=== PATIENT | female | born 1980 | race Caucasian/White ===

== ENCOUNTER 2017-04-21 00:11 | Emergency (ER) | payer MEDICARE, MEDICAID ==
[2017-04-21] MEDS ORDERED: MORPHINE SULFATE 10 MG/ML INJ IV ONE (02:04)
[2017-04-21] MEDS ORDERED: ONDANSETRON HCL INJ/PF 4 MG/2 ML SDV IV ONE (02:04)
--- NOTE | 2017-04-21 02:05 | ER Document Report ---
ED GI/ - General Chief Complaint: Flank Pain Stated Complaint: FLANK PAIN Time Seen by Provider: 04/21/17 01:58 Notes: Patient is a 36-year-old female who comes by EMS for chief complaint of flank pain. Symptoms started about 3 days ago, started on the right side, now she feels it on both. She reports some nausea and chills but denies vomiting or fever. She reports dysuria. She denies hematuria. She reports history of many bladder infections but is unsure of history of kidney infection. She denies history of kidney stones. She has had a hysterectomy, appendectomy, cholecystectomy, and is on hydrocodone for avascular necrosis of the right hip. TRAVEL OUTSIDE OF THE [place] IN LAST 30 DAYS: No - Related Data Allergies/Adverse Reactions: meperidine [From Demerol] Allergy (Severe, Verified 04/21/17 02:40) Psychosis Latex, Natural Rubber Allergy (Intermediate, Verified 04/21/17 02:53) Hives tramadol [From Ultram] Allergy (Verified 04/21/17 02:40) Urinary retention Past Medical History - General Information source: Patient - Social History Smoking Status: Current Every Day Smoker Lives with: Family Family History: Reviewed & Not Pertinent Patient has suicidal ideation: No Patient has homicidal ideation: No Renal/ Medical History: Denies: Hx Peritoneal Dialysis Musculoskeltal Medical History: Reports Hx Musculoskeletal Deformity Past Surgical History: Reports: Hx Appendectomy, Hx Cholecystectomy, Hx Hysterectomy Review of Systems - Review of Systems Constitutional: No symptoms reported EENT: No symptoms reported Cardiovascular: No symptoms reported Respiratory: No symptoms reported Gastrointestinal: See HPI Genitourinary: See HPI Female Genitourinary: No symptoms reported Musculoskeletal: No symptoms reported Skin: No symptoms reported Hematologic/Lymphatic: No symptoms reported Neurological/Psychological: No symptoms reported Physical Exam - Vital signs Vitals: Temp Pulse Resp BP Pulse Ox 98.2 F 73 18 139/82 H 99 04/21/17 00:15 04/21/17 00:15 04/21/17 00:15 04/21/17 00:15 04/21/17 00:15 Interpretation: Normal - General General appearance: Alert - Patient alert, she appears mildly uncomfortable but does not appear to be in distress In distress: None - HEENT Head: Normocephalic, Atraumatic Eyes: Normal Pupils: PERRL - Respiratory Respiratory status: No respiratory distress Chest status: Nontender Breath sounds: Normal Chest palpation: Normal - Cardiovascular Rhythm: Regular Heart sounds: Normal auscultation Murmur: No - Abdominal Inspection: Normal Distension: No distension Bowel sounds: Normal Tenderness: Tender - Mild suprapubic tenderness, no guarding, no rigidity, otherwise unremarkable Organomegaly: No organomegaly - Back Back: Normal, Nontender. No: Tender, CVA tenderness - Extremities General upper extremity: Normal inspection, Nontender, Normal color, Normal ROM , Normal temperature General lower extremity: Normal inspection, Nontender, Normal color, Normal ROM , Normal temperature, Normal weight bearing. No: Chelita's sign - Neurological Neuro grossly intact: Yes Cognition: Normal Orientation: AAOx4 Mand[place] Coma Scale Eye Opening: Spontaneous [place]ub[place] Coma Scale Verbal: Oriented Nubia Coma Scale Motor: Obeys Commands Mandan Coma Scale Total: 15 Speech: Normal Motor strength normal: LUE, RUE, LLE, RLE Sensory: Normal - Psychological Associated symptoms: Normal affect, Normal mood - Skin Skin Temperature: Warm Skin Moisture: Dry Skin Color: Normal Course - Re-evaluation Re-evalutation: I do not appreciate overt tenderness at either CVA location. Nontender abdomen other than mild suprapubic tenderness. Patient initially complaining of pain but she does not appear to be in any distress. No complaints after medications. Generally well-appearing. Vital signs unremarkable. CBC, chemistry unremarkable. Urine has positive nitrites but is otherwise unremarkable. With patient's urinary complaints patient will be treated with Keflex, she states she gets yeast infections and will therefore be treated with Diflucan to take afterwards. Discussed recommendations, follow-up, return precautions. Patient states understanding and agreement. - Vital Signs Vital signs: Temp Pulse Resp BP Pulse Ox 97.8 F 76 12 117/87 H 96 04/21/17 04:49 04/21/17 04:49 04/21/17 04:49 04/21/17 04:49 04/21/17 04:49 - Laboratory Result Diagrams: 04/21/17 02:18 04/21/17 02:18 Laboratory results interpreted by me: 04/21/17 04/21/17 02:18 03:18 RDW 14.4 H Seg Neutrophils % 40.2 L Lymphocytes % 49.3 H Urine Blood SMALL H Urine Nitrite POSITIVE H Urine Urobilinogen 4.0 H Discharge - Discharge Clinical Impression: Dysuria, Flank pain Condition: Stable Disposition: HOME, SELF-CARE Additional Instructions: Workup and symptoms are consistent with a urinary tract infection. Take the Keflex as prescribed to completion, after completion take the Diflucan pill to treat yeast infection. Follow-up with primary care. Return to the emergency department for any concerning worsening symptoms including vomiting, fever, etc. Prescriptions: Cephalexin Monohydrate [Keflex 500 mg Capsule] 500 mg PO BID #10 capsule Fluconazole [Diflucan] 150 mg PO ONCE PRN #1 tablet PRN Reason: Referrals: YADIRA HE MD [Primary Care Provider] - Follow up as needed
[2017-04-21 02:33] LABS: ABSOLUTE BASOPHILS # (AUTO) 0.1 10^3/uL (0.0-0.2); ABSOLUTE EOSINOPHILS # (AUTO) 0.2 10^3/uL (0.0-0.6); ABSOLUTE LYMPHOCYTES (AUTO) 3.8 10^3/uL (0.5-4.7); ABSOLUTE MONOCYTES (AUTO) 0.5 10^3/uL (0.1-1.4); ABSOLUTE NEUT (AUTO) 3.1 10^3/uL (1.7-8.2); BASOPHILS % (AUTO) 1.4 % (0-2); EOSINOPHILS % (AUTO) 2.2 % (0-6); HEMATOCRIT 43.1 % (36.0-47.0); HEMOGLOBIN 14.7 g/dL (12.0-15.5); LYMPHOCYTES % (AUTO) 49.3 % (13-45); MEAN CORPUSCULAR HEMOGLOBIN 30.4 pg (27.0-33.4); MEAN CORPUSCULAR HGB CONC 34.2 g/dL (32.0-36.0); MEAN CORPUSCULAR VOLUME 89 fl (80-97); MONOCYTES % (AUTO) 6.9 % (3-13); RED BLOOD COUNT 4.86 10^6/uL (3.72-5.28); RED CELL DISTRIBUTION WIDTH 14.4 % (11.5-14.0); SEGMENTED NEUTROPHILS % (AUTO) 40.2 % (42-78); WHITE BLOOD COUNT 7.7 10^3/uL (4.0-10.5)
[2017-04-21 02:46] LABS: ALANINE AMINOTRANSFERASE 33 U/L (9-52); ALBUMIN 3.9 g/dL (3.5-5.0); ALKALINE PHOSPHATASE 114 U/L (38-126); ANION GAP 8 (5-19); ASPARTATE AMINO TRANSFERASE 21 U/L (14-36); BILIRUBIN,DIRECT 0.2 mg/dL (0.0-0.4); BILIRUBIN,TOTAL 0.5 mg/dL (0.2-1.3); BLOOD UREA NITROGEN 8 mg/dL (7-20); CALCIUM 9.6 mg/dL (8.4-10.2); CARBON DIOXIDE 28 mmol/L (22-30); CHLORIDE 104 mmol/L (98-107); CREATININE RESULT 0.95 mg/dL (0.52-1.25); GLUCOSE 95 mg/dL (75-110); POTASSIUM 4.3 mmol/L (3.6-5.0); SODIUM 140.3 mmol/L (137-145); TOTAL PROTEIN 6.7 g/dL (6.3-8.2)
[2017-04-21 03:39] LABS: APPEARANCE,URINE CLEAR; BILIRUBIN,URINE NEGATIVE (NEGATIVE); GLUCOSE, URINE NEGATIVE (NEGATIVE); KETONES,URINE NEGATIVE (NEGATIVE); LEUKOCYTE ESTERASE,URINE NEGATIVE (NEGATIVE); NITRITE,URINE POSITIVE (NEGATIVE); PROTEIN,URINE NEGATIVE (NEGATIVE); URINE SPECIFIC GRAVITY 1.005
[2017-04-21] MEDS ORDERED: CEPHALEXIN 500 MG CAPSULE PO ONE (04:05)
[2017-04-21 04:51] VITALS: BP 117/87
== END 2017-04-21 04:50 | disposition home or self-care (01) ==
LOC: ER 00:11
DX: R30.0 Dysuria (principal); R10.9 Unspecified abdominal pain; F17.200 Nicotine dependence, unspecified, uncomplicated; Z91.040 Latex allergy status; Z90.710 Acquired absence of both cervix and uterus; Z90.49 Acquired absence of other specified parts of digestive tract
CPT/HCPCS: 99284; 96374; 96375; 36415; 87086; 85025; 80053; 81001; A9270; J2270; J2405

== ENCOUNTER 2017-04-25 00:15 | Emergency (ER) | payer MEDICARE, MEDICAID ==
[2017-04-25] MEDS ORDERED: MORPHINE SULFATE 10 MG/ML INJ IV ONE ×2 (00:35→02:16)
--- NOTE | 2017-04-25 01:23 | ER Document Report ---
ED Fall - General Chief Complaint: Fall Injury Stated Complaint: FALL,HIP PAIN Time Seen by Provider: 04/25/17 00:21 Notes: Patient is a 36-year-old female that comes emergency department for chief complaint of pain to her right hip and right shoulder. She states that she tripped over her own pant leg and lost her balance and fell on the linoleum surface just prior to arrival. She denies head injury, neck pain, back pain. She is not on a blood thinner. She has a past medical history of avascular necrosis of the right hip, she states that she sees orthopedics in [place] and was told that after she drops below 250 pounds they will perform surgery. Other past medical history includes hysterectomy, cholecystectomy, appendectomy. She is on chronic pain management. TRAVEL OUTSIDE OF THE [place] IN LAST 30 DAYS: No - Related data Allergies/Adverse Reactions: meperidine [From Demerol] Allergy (Severe, Verified 04/21/17 02:40) Psychosis Latex, Natural Rubber Allergy (Intermediate, Verified 04/21/17 02:53) Hives tramadol [From Ultram] Allergy (Verified 04/21/17 02:40) Urinary retention Past Medical History - General Information source: Patient - Social History Smoking Status: Never Smoker Frequency of alcohol use: None Drug Abuse: None Lives with: Family Family History: Reviewed & Not Pertinent Renal/ Medical History: Denies: Hx Peritoneal Dialysis Musculoskeltal Medical History: Reports Hx Arthritis, Reports Hx Musculoskeletal Deformity Psychiatric Medical History: Reports: Hx Depression Past Surgical History: Reports: Hx Appendectomy, Hx Cholecystectomy, Hx Gynecologic Surgery - D&C, Hx Hysterectomy, Hx Tubal Ligation Review of Systems - Review of Systems Constitutional: No symptoms reported EENT: No symptoms reported Cardiovascular: No symptoms reported Respiratory: No symptoms reported Gastrointestinal: No symptoms reported Genitourinary: No symptoms reported Female Genitourinary: No symptoms reported Musculoskeletal: See HPI Skin: No symptoms reported Hematologic/Lymphatic: No symptoms reported Neurological/Psychological: No symptoms reported Physical Exam - Vital signs Interpretation: Normal - General General appearance: Appears well, Alert In distress: None - HEENT Head: Normocephalic, Atraumatic Eyes: Normal Conjunctiva: Normal Extraocular movements intact: Yes Eyelashes: Normal Pupils: PERRL Nasal: Normal Mouth/Lips: Normal Mucous membranes: Normal Pharynx: Normal Neck: Normal - Respiratory Respiratory status: No respiratory distress Chest status: Nontender Breath sounds: Normal. No: Decreased air movement, Wheezing Chest palpation: Normal - Cardiovascular Rhythm: Regular. No: Tachycardia Heart sounds: Normal auscultation, S1 appreciated, S2 appreciated Murmur: No - Abdominal Inspection: Normal Distension: No distension Bowel sounds: Normal Tenderness: Nontender. No: Tender, Guarding Organomegaly: No organomegaly - Back Back: Normal, Nontender - Extremities General upper extremity: Other - There is tenderness over the right proximal humerus and posterior shoulder generally. No bruising or swelling, normal range of motion of the shoulder, normal strength, normal distal neurovascular exam. General lower extremity: Other - Patient tender over right groin and right femur proximally, no bruising, swelling, or signs of trauma. Normal distal neurovascular exam. Difficulty lifting leg but patient reports this is chronic. - Neurological Neuro grossly intact: Yes Cognition: Normal Orientation: AAOx4 Nubia Coma Scale Eye Opening: Spontaneous Nubia Coma Scale Verbal: Oriented [place] Coma Scale Motor: Obeys Commands Nubia Coma Scale Total: 15 Speech: Normal Motor strength normal: LUE, RUE, LLE, RLE Sensory: Normal - Psychological Associated symptoms: Normal affect, Normal mood - Skin Skin Temperature: Warm Skin Moisture: Dry Skin Color: Normal Course - Re-evaluation Re-evalutation: Images show no fractures, show no acute abnormalities. Shows avascular necrosis of the hip which is known and chronic. Patient was given a report of this on request. Patient much more comfortable after medications in the department, she is on pain management at home. Discussed follow-up, patient states she only has 7 more pounds to lose before she qualifies for surgery. She seems to be motivated. Discussed return precautions in detail. Patient states understanding and agreement. - Diagnostic Test Radiology reviewed: Image reviewed, Reports reviewed Discharge - Discharge Clinical Impression: Right hip pain, Avascular necrosis of bone of right hip Fall Qualifiers: Encounter type: initial encounter Qualified Code(s): W19.XXXA - Unspecified fall, initial encounter Right shoulder pain Qualifiers: Chronicity: acute Qualified Code(s): M25.511 - Pain in right shoulder Condition: Stable Disposition: HOME, SELF-CARE Additional Instructions: No new findings are seen on your x-ray imaging or demonstrated on your exam. Follow-up with your orthopedic surgeon as planned for your hip. Return to emergency department for any concerning symptoms including swelling of the leg, numbness, severe pain, or any other concerning symptoms. Referrals: YADIRA HE MD [Primary Care Provider] - Follow up as needed
--- NOTE | 2017-04-25 02:14 | RADIOLOGY REPORT (SQ) ---
EXAM DESCRIPTION: HIP RIGHT AP/LATERAL COMPLETED DATE/TIME: 04/25/2017 1:32 am REASON FOR STUDY: fall, pain (hx avascular necrosis) COMPARISON: None. NUMBER OF VIEWS: Two views. TECHNIQUE: AP pelvis and additional frog-leg view of the right hip. LIMITATIONS: None. FINDINGS: MINERALIZATION: Normal. RIGHT HIP: Moderate sclerosis and mild deformity of the right femoral head and acetabulum with joint space narrowing, superior migration of the femoral head, moderate osteophytes, and small subchondral degenerative cysts consistent with clinical history of chronic avascular necrosis and secondary moder ate osteoarthritis. LEFT HIP: No fracture or dislocation. No worrisome bone lesions. PUBIS AND ISCHIUM: No fracture. PELVIS: No fracture. SACRUM: No fracture or dislocation. No worrisome bone lesions. LOWER LUMBAR SPINE: No fracture or dislocation. No worrisome bone lesions. No significant disc disea se. SOFT TISSUES: No findings. OTHER: Bilateral lower abdominal clips. IMPRESSION: No acute findings. Mild deformity and moderate osteoarthritis of the right hip consiste nt with history of chronic avascular necrosis. TECHNICAL DOCUMENTATION: JOB ID: [id number] [employer]- All Rights Reserved
--- NOTE | 2017-04-25 02:15 | RADIOLOGY REPORT (SQ) ---
EXAM DESCRIPTION: SHOULDER RIGHT 2 OR MORE VIEWS COMPLETED DATE/TIME: 04/25/2017 1:32 am REASON FOR STUDY: fall, pain COMPARISON: None. NUMBER OF VIEWS: Three views. TECHNIQUE: Internal rotation, external rotation, and Y view images acquired of the right shoulder. LIMITATIONS: None. FINDINGS: MINERALIZATION: Normal. BONES: No acute fracture or dislocation. No worrisome bone lesions. JOINTS: No dislocation. VISUALIZED LUNGS AND RIBS: No pneumothorax. No rib fracture. SOFT TISSUES: No radiopaque foreign body. OTHER: No other significant finding. IMPRESSION: NEGATIVE STUDY OF THE RIGHT SHOULDER. NO RADIOGRAPHIC EVIDENCE OF ACUTE INJURY. TECHNICAL DOCUMENTATION: JOB ID: [id number] [employer]- All Rights Reserved
== END 2017-04-25 03:32 | disposition home or self-care (01) ==
LOC: ER 00:15
DX: M25.551 Pain in right hip (principal); M87.9 Osteonecrosis, unspecified; M25.511 Pain in right shoulder; W19.XXXA Unspecified fall, initial encounter
CPT/HCPCS: 96376; 99283; 96374; 73502; 73030; J2270

== ENCOUNTER 2017-04-27 00:55 | Emergency (ER) | payer MEDICARE, MEDICAID ==
[2017-04-27] MEDS ORDERED: PROMETHAZINE HCL INJ 25 MG/1 ML VIAL IM ONE (01:51)
[2017-04-27] MEDS ORDERED: CLONIDINE 0.1 MG/24 HR PATCH.TDWK TD ONE (01:51)
--- NOTE | 2017-04-27 01:56 | ER Document Report ---
ED General - General Chief Complaint: Headache Stated Complaint: NAUSEA, VOMITING Time Seen by Provider: 04/27/17 01:44 Notes: The patient is a 36-year-old female, PMHx left hip AVN (scheduled for hip replacement at [facility] when she can lose 7 pounds), chronic left hip pain on pain management, presents with nausea, vomiting, diarrhea and feeling like she is withdrawing from her Wood[place]. Her last dose was 2 days ago and she has a pain management appointment this morning at a new pain management clinic. Patient also has a mild headache that feels similar to prior headaches. Patient denies abdominal pain, chest pain, shortness of breath, blurry vision, numbness, tingling, fevers, hematemesis or hematochezia. TRAVEL OUTSIDE OF THE [place] IN LAST 30 DAYS: No - Related Data Allergies/Adverse Reactions: meperidine [From Demerol] Allergy (Severe, Verified 04/27/17 01:09) Psychosis Latex, Natural Rubber Allergy (Intermediate, Verified 04/27/17 01:09) Hives tramadol [From Ultram] Allergy (Verified 04/27/17 01:09) Urinary retention Past Medical History - General Information source: Patient - Social History Smoking Status: Unknown if Ever Smoked Family History: Reviewed & Not Pertinent Patient has suicidal ideation: No Patient has homicidal ideation: No Renal/ Medical History: Denies: Hx Peritoneal Dialysis Musculoskeltal Medical History: Reports Hx Arthritis, Reports Hx Musculoskeletal Deformity Psychiatric Medical History: Reports: Hx Depression Past Surgical History: Reports: Hx Appendectomy, Hx Cholecystectomy, Hx Gynecologic Surgery - D&C, Hx Hysterectomy, Hx Tubal Ligation Review of Systems - Review of Systems Notes: REVIEW OF SYSTEMS: CONSTITUTIONAL: -fevers, -chills EENT: -eye pain, -difficulty swallowing, -nasal congestion CARDIOVASCULAR:-chest pain, -syncope. RESPIRATORY: -cough, -SOB GASTROINTESTINAL: -abdominal pain, +nausea, +vomiting, +diarrhea GENITOURINARY: -dysuria, -hematuria MUSCULOSKELETAL: +left hip pain, -back pain, -neck pain SKIN: -rash or skin lesions. HEMATOLOGIC: -easy bruising or bleeding. LYMPHATIC: -swollen, enlarged glands. NEUROLOGICAL: -altered mental status or loss of consciousness, -headache, - neurologic symptoms PSYCHIATRIC: -anxiety, -depression. ALL OTHER SYSTEMS REVIEWED AND NEGATIVE. Physical Exam - Vital signs Vitals: Temp Pulse Resp BP Pulse Ox 98.4 F 74 16 124/93 H 96 04/27/17 01:07 04/27/17 01:07 04/27/17 01:07 04/27/17 01:07 04/27/17 01:07 - Notes Notes: PHYSICAL EXAMINATION: GENERAL: Sleeping until I wake her and then she begins to hyperventilate. HEAD: Atraumatic, normocephalic. EYES: Pupils equal round and reactive to light, extraocular movements intact, sclera anicteric, conjunctiva are normal. ENT: nares patent, oropharynx clear without exudates. Moist mucous membranes. NECK: Normal range of motion, supple without lymphadenopathy LUNGS: Breath sounds clear to auscultation bilaterally and equal. No wheezes rales or rhonchi. HEART: Regular rate and rhythm without murmurs ABDOMEN: Soft, nontender, normoactive bowel sounds. No guarding, no rebound. No masses appreciated. EXTREMITIES: Normal range of motion, no pitting or edema. No cyanosis. NEUROLOGICAL: Cranial nerves grossly intact. Normal speech, normal gait. Normal sensory and motor exams. PSYCH: Normal mood, normal affect. SKIN: Warm, Dry, normal turgor, no rashes or lesions noted. Course - Re-evaluation Re-evalutation: Patient's abdomen is completely soft and nontender. With the nausea, vomiting, diarrhea and piloerection that started 48 hours after her last Woodridge dose, suspect opiate withdrawal causing her symptoms. Will provide her with clonidine , Zofran and Phenergan with follow-up at her pain management appointment today. - Vital Signs Vital signs: Temp Pulse Resp BP Pulse Ox 98.4 F 74 16 124/93 H 96 04/27/17 01:07 04/27/17 01:07 04/27/17 01:07 04/27/17 01:07 04/27/17 01:07 Discharge - Discharge Clinical Impression: Nausea vomiting and diarrhea, Opioid withdrawal Condition: Stable Disposition: HOME, SELF-CARE Additional Instructions: You must follow-up with your pain management doctor today as already scheduled. Prescriptions: Ondansetron [Zofran Odt 4 mg Tablet] 1 - 2 tab PO Q4H PRN #15 tab.rapdis PRN Reason: For Nausea/Vomiting
[2017-04-27 03:31] VITALS: BP 140/78
== END 2017-04-27 03:31 | disposition home or self-care (01) ==
LOC: ER 00:55
DX: R11.2 Nausea with vomiting, unspecified (principal); R19.7 Diarrhea, unspecified; F11.23 Opioid dependence with withdrawal; R51 Headache; M25.552 Pain in left hip; G89.29 Other chronic pain
CPT/HCPCS: 99283; 96372; J2550; J3490

== ENCOUNTER → 2017-05-05 | Outpatient (CLI) | payer MEDICARE, MEDICAID ==
--- NOTE | 2017-05-05 15:29 | RADIOLOGY REPORT (SQ) ---
EXAM DESCRIPTION: CHEST PA/LATERAL COMPLETED DATE/TIME: 05/05/2017 3:05 pm REASON FOR STUDY: PRE-OP COMPARISON: None. EXAM PARAMETERS: NUMBER OF VIEWS: two views TECHNIQUE: Digital Frontal and Lateral radiographic views of the chest acquired. RADIATION DOSE: NA LIMITATIONS: Obese patient FINDINGS: LUNGS AND PLEURA: No opacities, masses or pneumothorax. No pleural effusion. MEDIASTINUM AND HILAR STRUCTURES: No masses or contour abnormalities. HEART AND VASCULAR STRUCTURES: Mild cardiomegaly BONES: Osteopenic HARDWARE: Clips right upper quadrant post cholecystectomy OTHER: No other significant finding. IMPRESSION: Mild cardiomegaly TECHNICAL DOCUMENTATION: JOB ID: [id number] [employer]- All Rights Reserved
[2017-05-05 16:31] LABS: ABSOLUTE BASOPHILS # (AUTO) 0.1 10^3/uL (0.0-0.2); ABSOLUTE EOSINOPHILS # (AUTO) 0.2 10^3/uL (0.0-0.6); ABSOLUTE LYMPHOCYTES (AUTO) 3.4 10^3/uL (0.5-4.7); ABSOLUTE MONOCYTES (AUTO) 0.5 10^3/uL (0.1-1.4); ABSOLUTE NEUT (AUTO) 4.4 10^3/uL (1.7-8.2); BASOPHILS % (AUTO) 1.5 % (0-2); EOSINOPHILS % (AUTO) 2.7 % (0-6); HEMATOCRIT 42.2 % (36.0-47.0); HEMOGLOBIN 14.5 g/dL (12.0-15.5); HGB HCT DIFFERENCE 1.3; MEAN CORPUSCULAR HEMOGLOBIN 29.9 pg (27.0-33.4); MEAN CORPUSCULAR HGB CONC 34.2 g/dL (32.0-36.0); MEAN CORPUSCULAR VOLUME 87 fl (80-97); MONOCYTES % (AUTO) 6.2 % (3-13); RED BLOOD COUNT 4.83 10^6/uL (3.72-5.28); RED CELL DISTRIBUTION WIDTH 14.5 % (11.5-14.0); SEGMENTED NEUTROPHILS % (AUTO) 50.6 % (42-78); WHITE BLOOD COUNT 8.6 10^3/uL (4.0-10.5)
[2017-05-05 16:45] LABS: APPEARANCE,URINE CLEAR; BILIRUBIN,URINE NEGATIVE (NEGATIVE); GLUCOSE, URINE NEGATIVE (NEGATIVE); KETONES,URINE NEGATIVE (NEGATIVE); LEUKOCYTE ESTERASE,URINE NEGATIVE (NEGATIVE); NITRITE,URINE NEGATIVE (NEGATIVE); PROTEIN,URINE NEGATIVE (NEGATIVE); URINE SPECIFIC GRAVITY 1.003; UROBILINOGEN,URINE NEGATIVE mg/dL (<2.0)
[2017-05-05 16:56] LABS: ANION GAP 12 (5-19); BLOOD UREA NITROGEN 4 mg/dL (7-20); CALCIUM 9.4 mg/dL (8.4-10.2); CARBON DIOXIDE 23 mmol/L (22-30); CHLORIDE 105 mmol/L (98-107); CREATININE RESULT 0.81 mg/dL (0.52-1.25); GLUCOSE 85 mg/dL (75-110); POTASSIUM 3.8 mmol/L (3.6-5.0); SODIUM 140.3 mmol/L (137-145)
--- NOTE | 2017-05-05 18:18 | EKG REPORT ---
SEVERITY:- BORDERLINE ECG - SINUS RHYTHM CONSIDER RVH OR PMI W/ SEC REPOL ABNORMALITY BORDERLINE PROLONGED QT INTERVAL : Confirmed by: Ly Thornton MD 05-May-2017 18:17:57
== END ==
LOC: OD 14:16
PROVIDERS: ATTEND Orthopaedic Surgery
DX: Z01.810 Encounter for preprocedural cardiovascular examination (principal); Z01.812 Encounter for preprocedural laboratory examination; Z01.818 Encounter for other preprocedural examination
CPT/HCPCS: 36415; 71020; 80048; 81001; 85025; 93005; 93010

== ENCOUNTER 2017-10-13 12:57 | Emergency (ER) | payer MEDICARE, MEDICAID ==
[2017-10-13] MEDS ORDERED: PENICILLIN V POTASSIUM 500 MG TABLET PO ONE (13:17)
[2017-10-13] MEDS ORDERED: HYDROCODONE/ACETAMINOPHEN 5-325 MG TABLET PO ONE (13:17)
[2017-10-13] MEDS ORDERED: METOCLOPRAMIDE HCL 10 MG TABLET PO ONE (13:17)
--- NOTE | 2017-10-13 13:19 | ER Document Report ---
ED General - General Chief Complaint: Abdominal Pain Stated Complaint: VOMITING// ABDOMINAL PAIN Time Seen by Provider: 10/13/17 13:13 Mode of Arrival: Ambulatory Information source: Patient Notes: 37-year-old female presents with 2 separate complaints. Patient notes she is having left upper quadrant abdominal pain. Notes the pain has been ongoing now for a few days, patient notes the pain started after she was doing yard work and saw her PCP yesterday who believes it was a muscle strain, patient denies any fevers or chills admits to left-sided facial swelling as well started this morning. Patient notes she has a broken tooth TRAVEL OUTSIDE OF THE [place] IN LAST 30 DAYS: No - HPI Onset: Yesterday Onset/Duration: Persistent Quality of pain: Achy Severity: Mild Pain Level: 1 Associated symptoms: Nausea, Vomiting Exacerbated by: Food Relieved by: Denies Similar symptoms previously: Yes Recently seen / treated by doctor: Yes - Related Data Allergies/Adverse Reactions: meperidine [From Demerol] Allergy (Severe, Verified 10/13/17 13:03) Psychosis Latex, Natural Rubber Allergy (Intermediate, Verified 10/13/17 13:03) Hives melon Allergy (Verified 10/13/17 13:03) shellfish derived Allergy (Verified 10/13/17 13:03) strawberry Allergy (Verified 10/13/17 13:03) tramadol [From Ultram] Allergy (Verified 10/13/17 13:03) Urinary retention vinyl Allergy (Severe, Uncoded 05/18/17 15:11) Blisters Past Medical History - Social History Smoking Status: Never Smoker Cigarette use (# per day): No Chew tobacco use (# tins/day): No Smoking Education Provided: No Family History: Reviewed & Not Pertinent - Past Medical History Cardiac Medical History: Reports: Hx Hypertension Denies: Hx Atrial Fibrillation, Hx Congestive Heart Failure, Hx Coronary Artery Disease, Hx Heart Attack, Hx Hypercholesterolemia, Hx Peripheral Vascular Disease, Hx Pulmonary Embolism, Hx Heart Murmur Pulmonary Medical History: Reports: Hx Bronchitis Denies: Hx Asthma, Hx COPD, Hx Pneumonia, Hx Respiratory Failure, Hx Sleep Apnea, Hx Tuberculosis Renal/ Medical History: Denies: Hx End Stage Renal Disease, Hx Kidney Stones, Hx Peritoneal Dialysis Malignancy Medical History: Denies: Hx Leukemia, Hx Lung Cancer GI Medical History: Reports: Hx Gastroesophageal Reflux Disease. Denies: Hx Crohn's Disease, Hx Hiatal Hernia, Hx Irritable Bowel, Hx Liver Failure, Hx Pancreatitis, Hx Ulcer Musculoskeltal Medical History: Reports Hx Arthritis, Denies Hx Fibromyalgia, Denies Hx Muscular Dystrophy, Reports Hx Musculoskeletal Deformity Psychiatric Medical History: Reports: Hx Depression - anxiety Denies: Hx Bipolar Disorder, Hx Post Traumatic Stress Disorder, Hx Schizophrenia Traumatic Medical History: Denies: Hx Fractures Infectious Medical History: Denies: Hx HIV Past Surgical History: Reports: Hx Appendectomy, Hx Cholecystectomy, Hx Gynecologic Surgery - D&C, Hx Hysterectomy, Hx Tubal Ligation. Denies: Hx Bowel Surgery, Hx Section, Hx Colostomy, Hx Coronary Artery Bypass Graft, Hx Gastric Bypass Surgery, Hx Herniorrhaphy, Hx Mastectomy, Hx Pacemaker , Hx Tonsillectomy Review of Systems - Review of Systems Notes: REVIEW OF SYSTEMS: CONSTITUTIONAL : Denies fever, chills, or sweats. Denies recent illness. EENT: Admits facial swelling dental pain CARDIOVASCULAR: Denies chest pain. Denies palpitations or racing or irregular heart beat. Denies ankle edema. RESPIRATORY: Denies cough, cold, or chest congestion. Denies shortness of breath, difficulty breathing, or wheezing. GASTROINTESTINAL: Admits to left upper quadrant abdominal pain nausea vomiting GENITOURINARY: Denies difficulty urinating, painful urination, burning, frequency, blood in urine, or discharge. FEMALE GENITOURINARY: Denies vaginal bleeding, heavy or abnormal periods, irregular periods. Denies vaginal discharge or odor. MUSCULOSKELETAL: Denies back or neck pain or stiffness. Denies joint pain or swelling. SKIN: Denies rash, lesions or sores. HEMATOLOGIC : Denies easy bruising or bleeding. LYMPHATIC: Denies swollen, enlarged glands. NEUROLOGICAL: Denies confusion or altered mental status. Denies passing out or loss of consciousness. Denies dizziness or lightheadedness. Denies headache. Denies weakness or paralysis or loss of use of either side. Denies problems with gait or speech. Denies sensory loss, numbness, or tingling. Denies seizures. PSYCHIATRIC: Denies anxiety or stress. Denies depression, suicidal ideation, or homicidal ideation. ALL OTHER SYSTEMS REVIEWED AND NEGATIVE. PHYSICAL EXAMINATION: GENERAL: Well-appearing, well-nourished and in no acute distress. HEAD: Atraumatic, normocephalic. EYES: Pupils equal round and reactive to light, extraocular movements intact, conjunctiva are normal. ENT: Extremely poor dentition, tooth #20 is fractured there is facial edema noted of the left lower jaw with no abscess NECK: Normal range of motion, supple without lymphadenopathy LUNGS: Breath sounds clear to auscultation bilaterally and equal. No wheezes rales or rhonchi. HEART: Regular rate and rhythm without murmurs ABDOMEN: Soft, tender in the left upper quadrant Female : deferred Musculoskeletal: Normal range of motion, no pitting or edema. No cyanosis. NEUROLOGICAL: Cranial nerves grossly intact. Normal speech, normal gait. Normal sensory, motor exams PSYCH: Normal mood, normal affect. SKIN: Warm, Dry, normal turgor, no rashes or lesions noted. Dictation was performed using [employer] voice recognition software Physical Exam - Vital signs Vitals: Temp Pulse Resp BP Pulse Ox 97.9 F 70 22 H 179/100 H 100 10/13/17 13:03 10/13/17 13:03 10/13/17 13:03 10/13/17 13:03 10/13/17 13:03 Course - Re-evaluation Re-evalutation: 10/13/17 13:19 Patient has obvious dental infection, will be started on antibiotics, she nausea pain will be controlled, lab work is pending regarding her abdominal pain however I believe this may be more muscle strain as her PCP believes as well 10/13/17 14:44 Patient's lab work noted no significant abnormality, she otherwise looks well, she will be treated for a dental infection, be given pain control and otherwise is stable for discharge, patient will be given dentistry follow-up as well After performing a Medical Screening Examination, I estimate there is LOW risk for a DEEP SPACE INFECTION (e.g., KRIS'S ANGINA OR RETROPHARYNGEAL ABSCESS), MENINGITIS, INTRACRANIAL HEMORRHAGE, or AIRWAY COMPROMISE, thus I consider the discharge disposition reasonable. Also, there is no evidence or peritonitis, sepsis, or toxicity. I have reevaluated this patient multiple times and no significant life threatening changes are noted. The patient and I have discussed the diagnosis and risks, and we agree with discharging home with close follow-up with the understanding that symptoms and presentations can change. We also discussed returning to the Emergency Department immediately if new or worsening symptoms occur. We have discussed the symptoms which are most concerning (e.g., changing or worsening pain, trouble swallowing or breathing, neck stiffness or fever) that necessitate immediate return. - Vital Signs Vital signs: Temp Pulse Resp BP Pulse Ox 97.9 F 70 22 H 179/100 H 100 10/13/17 13:03 10/13/17 13:03 10/13/17 13:03 10/13/17 13:03 10/13/17 13:03 - Laboratory Result Diagrams: 10/13/17 13:26 10/13/17 13:26 Laboratory results interpreted by me: 10/13/17 10/13/17 13:26 13:26 RDW 14.5 H Chloride 108 H Discharge - Discharge Clinical Impression: Pain, dental, Facial swelling, Intermittent left upper quadrant abdominal pain Condition: Stable Disposition: HOME, SELF-CARE Instructions: Abdominal Pain ([facility]), Toothache ([facility]) Additional Instructions: Follow up with your physician tomorrow for further care or return to the ED IMMEDIATELY if symptoms worsen or new concerns occur. If you cannot afford to follow up with your primary care physician a list of low cost clinics have been provided at the end of your discharge papers as well. Prescriptions: Hydrocodone/Acetaminophen [[place] 5-325 mg Tablet] 1 tab PO Q6 #10 tablet Penicillin V Potassium [Penicillin Vk 500 mg Tablet] 500 mg PO Q6 #40 tablet
[2017-10-13 13:41] LABS: ABSOLUTE BASOPHILS # (AUTO) 0.1 10^3/uL (0.0-0.2); ABSOLUTE EOSINOPHILS # (AUTO) 0.2 10^3/uL (0.0-0.6); ABSOLUTE LYMPHOCYTES (AUTO) 2.4 10^3/uL (0.5-4.7); ABSOLUTE MONOCYTES (AUTO) 0.6 10^3/uL (0.1-1.4); ABSOLUTE NEUT (AUTO) 5.9 10^3/uL (1.7-8.2); BASOPHILS % (AUTO) 0.8 % (0-2); EOSINOPHILS % (AUTO) 1.9 % (0-6); HEMATOCRIT 44.5 % (36.0-47.0); HEMOGLOBIN 14.8 g/dL (12.0-15.5); LYMPHOCYTES % (AUTO) 25.9 % (13-45); MEAN CORPUSCULAR HEMOGLOBIN 29.3 pg (27.0-33.4); MEAN CORPUSCULAR HGB CONC 33.3 g/dL (32.0-36.0); MEAN CORPUSCULAR VOLUME 88 fl (80-97); MONOCYTES % (AUTO) 6.9 % (3-13); PLATELET COUNT 292 10^3/uL (150-450); RED BLOOD COUNT 5.07 10^6/uL (3.72-5.28); RED CELL DISTRIBUTION WIDTH 14.5 % (11.5-14.0); SEGMENTED NEUTROPHILS % (AUTO) 64.5 % (42-78); TOTAL CELLS COUNTED % (AUTO) 100 %; WHITE BLOOD COUNT 9.1 10^3/uL (4.0-10.5)
[2017-10-13 13:58] LABS: ALANINE AMINOTRANSFERASE 33 U/L (9-52); ALBUMIN 4.1 g/dL (3.5-5.0); ALKALINE PHOSPHATASE 119 U/L (38-126); ANION GAP 14 (5-19); ASPARTATE AMINO TRANSFERASE 19 U/L (14-36); BILIRUBIN,DIRECT 0.4 mg/dL (0.0-0.4); BILIRUBIN,TOTAL 0.4 mg/dL (0.2-1.3); BLOOD UREA NITROGEN 8 mg/dL (7-20); CALCIUM 9.8 mg/dL (8.4-10.2); CARBON DIOXIDE 22 mmol/L (22-30); CHLORIDE 108 mmol/L (98-107); GLUCOSE 100 mg/dL (75-110); LIPASE 83.8 U/L (23-300); POTASSIUM 4.2 mmol/L (3.6-5.0); SODIUM 143.7 mmol/L (137-145); TOTAL PROTEIN 6.5 g/dL (6.3-8.2)
[2017-10-13 14:51] VITALS: BP 128/95
== END 2017-10-13 14:50 | disposition home or self-care (01) ==
LOC: ER 12:57
DX: K04.7 Periapical abscess without sinus (principal); R10.12 Left upper quadrant pain; K08.89 Other specified disorders of teeth and supporting structures; R11.2 Nausea with vomiting, unspecified; I10 Essential (primary) hypertension; Z88.5 Allergy status to narcotic agent; Z91.040 Latex allergy status; Z91.018 Allergy to other foods; Z91.013 Allergy to seafood; Z91.048 Other nonmedicinal substance allergy status; Z90.49 Acquired absence of other specified parts of digestive tract
CPT/HCPCS: 99284; 36415; 83690; 85025; 80053; A9270 ×3

== ENCOUNTER → 2017-12-16 | Outpatient (CLI) | payer MEDICARE, MEDICAID ==
--- NOTE | 2017-12-16 18:56 | RADIOLOGY REPORT (SQ) ---
EXAM DESCRIPTION: CT RT LOWER EXTREMITY WITHOUT COMPLETED DATE/TIME: 12/16/2017 6:22 pm REASON FOR STUDY: UNILATERAL PRIMARY OSTEOARTHRITIS, RIGHT HIP M16.11 UNILATERAL PRIMARY OSTEOARTHR ITIS, RIGHT HIP M25.552 PAIN IN LEFT HIP COMPARISON: None. TECHNIQUE: CT scan of the right hip performed without intravenous or oral contrast. Images reviewed with soft tissue and bone windows. Reconstructed coronal and sagittal MPR images reviewed. All kylie ges stored on PACS. All CT scanners at this facility use dose modulation, iterative reconstruction, and/or weight based d osing when appropriate to reduce radiation dose to as low as reasonably achievable (ALARA). [facility]: Dose Right [facility]: CareDose [facility]: Dose Right [facility]: Teradose 4D [facility]: [employer] RADIATION DOSE: CT Rad equipment meets quality standard of care and radiation dose reduction techniq ues were employed. CTDIvol: 4.1 mGy. DLP: 147 mGy-cm. mGy. LIMITATIONS: None. FINDINGS: PELVIC BONES: No acute fracture. No worrisome bone lesions. VISUALIZED SPINE: Not included. SYMPTOMATIC HIP: Severe joint space narrowing with subchondral cysts in the acetabulum and femoral he ad. Marginal femoral osteophytes. OPPOSITE HIP: Not included. PELVIC SOFT TISSUES: No significant findings. EXTRAPELVIC SOFT TISSUES: No significant findings. OTHER: No other significant finding. IMPRESSION: Severe degenerative joint disease in the right hip. TECHNICAL DOCUMENTATION: JOB ID: [id number] Quality ID # [id number]: Final reports with documentation of one or more dose reduction techniques (e.g., Au tomated exposure control, adjustment of the mA and/or kV according to patient size, use of iterative reconstruction technique) 2010 [employer]- All Rights Reserved Reading location - IP/workstation name: [email or web address]
--- NOTE | 2017-12-17 08:53 | RADIOLOGY REPORT (SQ) ---
EXAM DESCRIPTION: MRI LT LOWER JOINT WITHOUT COMPLETED DATE/TIME: 12/16/2017 8:50 pm REASON FOR STUDY: PAIN IN LEFT HIP M16.11 UNILATERAL PRIMARY OSTEOARTHRITIS, RIGHT HIP M25.552 WICHO N IN LEFT HIP COMPARISON: Right hip plain films 04/25/2017, 05/19/2017 CT right hip 12/16/2017 TECHNIQUE: Lefth[employer] images acquired and stored on PACS. Multiplanar images to include fat sensitive s equences as T1, fluid sensitive sequences as T2/STIR and gradient echo sequences. Large FOV fat and f luid sensitive sequences include pelvis and opposite hip. LIMITATIONS: None. FINDINGS: BONE CORTEX AND MARROW: No findings worrisome for aggressive marrow replacement process or metastatic disease TARGETED LEFT HIP: FEMORAL HEAD: No occult fracture. No osteophytes or subchondral cysts. Normal sphericity of femoral h ead/neck junction. No acetabular dysplasia. No evidence femoroacetabular impingement. No significant effusion. No evidence of left femoral head avascular necrosis. ACETABULUM: Normal morphology. Mild chondromalacia. No subchondral cysts. LABRUM: Labrum is grossly normal size. Mild marrow edema at its attachment to the bony acetabulum on coronal series 9, images 13-16. No paralabral cyst. TROCHANTER: No trochanteric bursal effusion. No edema/fluid at the insertions of the gluteus medius and gluteus minimus. RIGHT HIP: Stage IV avascular necrosis right hip, with collapse of the articular surface right femora l head. Superimposed advanced osteoarthritis with a [id number]-xf-ccel appearance, subcortical cyst format ion in the right acetabulum, adjacent right acetabular and right femoral head and neck marrow edema. Diffusely abnormal calcified labrum. No right hip joint effusion. PELVIS, LOWER LUMBAR SPINE, SACROILIAC JOINTS: PELVIS : No insufficiency/stress fractures. No significant degenerative changes. Sacroiliac joints normal. L SPINE: No significant osteophytes or degenerative changes of the visualized lumbar spine. MUSCLES AND SOFT TISSUES: Adductors and piriformis normal. Abductors and greater trochanteric bursa n ormal without edema or fluid. Iliopsoas bursa without fluid. Hamstring attachments without edema or t ear. PELVIC SOFT TISSUES: Post hysterectomy. Sigmoid diverticuli without MR evidence of diverticulitis OTHER: No other significant finding. IMPRESSION: Stage IV avascular necrosis right hip No MR evidence of left hip avascular necrosis. TECHNICAL DOCUMENTATION: JOB ID: [id number] [employer]- All Rights Reserved Reading location - IP/workstation name: [email or web address]
== END ==
LOC: RAD 17:55
PROVIDERS: ATTEND Physician Assistant
DX: M16.11 Unilateral primary osteoarthritis, right hip (principal); M87.052 Idiopathic aseptic necrosis of left femur; M25.552 Pain in left hip

== ENCOUNTER → 2017-12-17 | Outpatient (CLI) | payer MEDICARE, MEDICAID ==
[2017-12-17 13:32] LABS: ABSOLUTE BASOPHILS # (AUTO) 0.1 10^3/uL (0.0-0.2); ABSOLUTE EOSINOPHILS # (AUTO) 0.2 10^3/uL (0.0-0.6); ABSOLUTE LYMPHOCYTES (AUTO) 2.6 10^3/uL (0.5-4.7); ABSOLUTE MONOCYTES (AUTO) 0.4 10^3/uL (0.1-1.4); ABSOLUTE NEUT (AUTO) 6.4 10^3/uL (1.7-8.2); BASOPHILS % (AUTO) 0.9 % (0-2); EOSINOPHILS % (AUTO) 2.4 % (0-6); HEMATOCRIT 40.5 % (36.0-47.0); HEMOGLOBIN 13.4 g/dL (12.0-15.5); LYMPHOCYTES % (AUTO) 26.9 % (13-45); MEAN CORPUSCULAR HEMOGLOBIN 29.6 pg (27.0-33.4); MEAN CORPUSCULAR HGB CONC 33.1 g/dL (32.0-36.0); MEAN CORPUSCULAR VOLUME 89 fl (80-97); MONOCYTES % (AUTO) 4.3 % (3-13); PLATELET COUNT 309 10^3/uL (150-450); RED BLOOD COUNT 4.53 10^6/uL (3.72-5.28); RED CELL DISTRIBUTION WIDTH 15.2 % (11.5-14.0); SEGMENTED NEUTROPHILS % (AUTO) 65.5 % (42-78); TOTAL CELLS COUNTED % (AUTO) 100 %; WHITE BLOOD COUNT 9.8 10^3/uL (4.0-10.5)
[2017-12-17 13:58] LABS: BACTERIA (WET MOUNT) 4+ BACTERIA SEEN; EPITHELIALS (WET MOUNT) 4+ EPITHELIALS SEEN; RBCS (WET MOUNT) RARE RBCS SEEN; T.VAGINALIS (WET MOUNT) NO TRICHOMONAS SEEN; WBCS (WET MOUNT) FEW WBCS SEEN; YEAST (WET MOUNT) NO YEAST SEEN
[2017-12-17 15:00] LABS: CHLAM PCR NOT DETECTED (NOT DETECT); GON PCR NOT DETECTED (NOT DETECT)
== END ==
LOC: LAB 13:14
PROVIDERS: ATTEND Nurse Practitioner Acute Care
DX: R10.84 Generalized abdominal pain (principal)
CPT/HCPCS: 36415; 85025; 87210; 87491; 87591

== ENCOUNTER 2018-01-20 04:03 | Emergency (ER) | payer MEDICARE, MEDICAID ==
[2018-01-20] MEDS ORDERED: CEFTRIAXONE 1 GM/D5W RTU 1 GM/50 ML RTUPB IV ONE (04:15)
[2018-01-20] MEDS ORDERED: ENOXAPARIN SODIUM INJ 120 MG/0.8 ML DISP.SYRIN SUBCUT SCH (04:15)
[2018-01-20] MEDS ORDERED: NORMAL SALINE 1000 ML 1,000 ML IV ONE (04:16)
--- NOTE | 2018-01-20 04:22 | ER Document Report ---
ED General - General TRAVEL OUTSIDE OF THE [place] IN LAST 30 DAYS: No <DESTINEE DC - Last Filed: 01/20/18 07:04> <LUDY JOHNSON - Last Filed: 01/20/18 09:52> - General Stated Complaint: PAIN AND SWELLING OF RIGHT LEG Time Seen by Provider: 01/20/18 04:06 - HPI Notes: Patient is a 37-year-old female with a history of avascular necrosis of the right hip with FLORY performed 6 days ago presents to the ED complaining of increased swelling to the right leg, increased warmth near the surgical site, and increased pain. Patient states that she is currently on Xarelto. Patient has been ambulatory with assistance from her walker since then. Patient states that she has a foot drop on the right side but developed right after the surgery which her surgeon is aware of per patient. Patient states that she otherwise feels well and has been eating and drinking without any difficulties. She is urinating normally and having normal bowel movements. Denies any headache, fever, URI, sore throat, chest pain, palpitations, syncope, cough, shortness of breath, wheeze, dyspnea, abdominal pain, nausea/vomiting/diarrhea, urinary retention, dysuria, hematuria, loss of control of bowel or bladder, saddle anesthesia, or rash. (DESTINEE DC) - Related Data Allergies/Adverse Reactions: meperidine [From Demerol] Allergy (Severe, Verified 10/13/17 13:03) Psychosis Latex, Natural Rubber Allergy (Intermediate, Verified 10/13/17 13:03) Hives melon Allergy (Verified 10/13/17 13:03) shellfish derived Allergy (Verified 10/13/17 13:03) strawberry Allergy (Verified 10/13/17 13:03) tramadol [From Ultram] Allergy (Verified 10/13/17 13:03) Urinary retention vinyl Allergy (Severe, Uncoded 05/18/17 15:11) Blisters Past Medical History - Social History Smoking Status: Never Smoker Family History: Reviewed & Not Pertinent - Past Medical History Cardiac Medical History: Reports: Hx Hypertension Denies: Hx Atrial Fibrillation, Hx Congestive Heart Failure, Hx Coronary Artery Disease, Hx Heart Attack, Hx Hypercholesterolemia, Hx Peripheral Vascular Disease, Hx Pulmonary Embolism, Hx Heart Murmur Pulmonary Medical History: Reports: Hx Bronchitis Denies: Hx Asthma, Hx COPD, Hx Pneumonia, Hx Respiratory Failure, Hx Sleep Apnea, Hx Tuberculosis Renal/ Medical History: Denies: Hx End Stage Renal Disease, Hx Kidney Stones, Hx Peritoneal Dialysis Malignancy Medical History: Denies: Hx Leukemia, Hx Lung Cancer GI Medical History: Reports: Hx Gastroesophageal Reflux Disease. Denies: Hx Crohn's Disease, Hx Hiatal Hernia, Hx Irritable Bowel, Hx Liver Failure, Hx Pancreatitis, Hx Ulcer Musculoskeltal Medical History: Reports Hx Arthritis, Denies Hx Fibromyalgia, Denies Hx Muscular Dystrophy, Reports Hx Musculoskeletal Deformity Psychiatric Medical History: Reports: Hx Depression - anxiety Denies: Hx Bipolar Disorder, Hx Post Traumatic Stress Disorder, Hx Schizophrenia Traumatic Medical History: Denies: Hx Fractures Infectious Medical History: Denies: Hx HIV Past Surgical History: Reports: Hx Appendectomy, Hx Cholecystectomy, Hx Gynecologic Surgery - D&C, Hx Hysterectomy, Hx Tubal Ligation. Denies: Hx Bowel Surgery, Hx Section, Hx Colostomy, Hx Coronary Artery Bypass Graft, Hx Gastric Bypass Surgery, Hx Herniorrhaphy, Hx Mastectomy, Hx Pacemaker , Hx Tonsillectomy <DESTINEE DC - Last Filed: 01/20/18 07:04> Review of Systems - Review of Systems -: Yes All other systems reviewed and negative <DESTINEE DC - Last Filed: 01/20/18 07:04> Physical Exam <DESTINEE DC - Last Filed: 01/20/18 07:04> <LUDY JOHNSON - Last Filed: 01/20/18 09:52> - Vital signs Vitals: Temp Pulse Resp BP Pulse Ox 99.4 F 84 16 143/93 H 97 01/20/18 04:11 01/20/18 04:11 01/20/18 04:11 01/20/18 04:11 01/20/18 04:11 - Notes Notes: PHYSICAL EXAMINATION: GENERAL: Well-appearing, well-nourished and in no acute distress. LUNGS: Breath sounds clear to auscultation bilaterally and equal. No wheezes rales or rhonchi. HEART: Regular rate and rhythm without murmurs, rubs, gallops. ABDOMEN: Soft, nontender, nondistended abdomen. No guarding, no rebound. No masses appreciated. Normal bowel sounds present. No CVA tenderness bilaterally. Musculoskeletal: Rt hip: LROM to passive/active. Strength 5+/5. + mild erythema and warmth. + mild tenderness. Rt leg: Compartments are soft. + foot drop. N/V intact distal. + pitting edema (approx 1-2+). Extremities: Peripheral pulses 2+. Capillary refill less than 3 seconds. NEUROLOGICAL: Normal speech. Normal sensory PSYCH: Normal mood, normal affect. SKIN: see above. Warm, Dry, normal turgor, no rashes or lesions noted. (DESTINEE DC) Course - Laboratory Result Diagrams: 01/20/18 04:32 01/20/18 04:32 <DESTINEE DC - Last Filed: 01/20/18 07:04> - Laboratory Result Diagrams: 01/20/18 04:32 01/20/18 04:32 <LUDY JOHNSON - Last Filed: 01/20/18 09:52> - Re-evaluation Re-evalutation: 01/20/18 04:[address] Haines. We will cover for infection and investigate further for possible DVT. Doppler cannot be performed until approx 0800. Lovenox ordered. Rocephin and fluids ordered along with labs. 01/20/18 07:05 Patient has no new concerns or complaints at this time. Transfer care to Delaney MOORE (DESTINEE DC) 01/20/18 09:31 I am concerned about infection when I walk into the room and see the redness, heat and an area of induration to the lateral right hip beneath the incision site, no drainage from the incision site according to BEN that was overnight who did remove dressing and take a look at the incision. Doppler ultrasound negative for any blood clot. Patient is afebrile with a normal white blood cell count. I did call and speak with the orthopedic doctor who performed patient surgery 6 days ago, [address] Delgado who recommends seeing her in the office this afternoon. However Dr. Delgado states that she thinks it is highly unlikely that there is an infection and she just saw her less than 12 hours ago. 01/20/18 09:51 Dr. Delgado just called back and states that she wants her to go directly there now, she has an opening this morning for her. (LUDY JOHNSON) - Vital Signs Vital signs: Temp Pulse Resp BP Pulse Ox 98.7 F 86 16 143/80 H 94 01/20/18 06:09 01/20/18 06:09 01/20/18 06:09 01/20/18 06:09 01/20/18 06:09 - Laboratory Laboratory results interpreted by me: 01/20/18 01/20/18 04:32 04:32 Hgb 11.8 L Hct 35.6 L RDW 14.5 H BUN 5 L AST 86 H ALT 124 H Alkaline Phosphatase 192 H Total Protein 5.7 L Albumin 3.0 L Discharge <DESTINEE DC - Last Filed: 01/20/18 07:04> <LUDY JOHNSON - Last Filed: 01/20/18 09:52> - Discharge Clinical Impression: Right leg pain Condition: Stable Disposition: HOME, SELF-CARE Additional Instructions: Rest, Ice, Compression, Elevation Use walker as directed Tylenol/ibuprofen as needed Light stretches daily Strength exercises as able Moist heat and massage may help F/u with your PCP in 3-5 days for a recheck Consider consult(s) with Orthopedics/physical therapy for ongoing/worsening symptoms Return to the ED with any worsening symptoms and/or development of fever, headache, chest pain, palpitations, syncope, shortness of breath, trouble breathing, abdominal pain, n/v/d, muscle weakness/paralysis, numbness/tingling, swelling, redness, or other worsening symptoms that are concerning to you. Referrals: RORY OLIVARES NP [Primary Care Provider] - Follow up as needed ORTHOPEDICS [Provider Group] - Follow up in 3-5 days
[2018-01-20] MEDS ORDERED: MORPHINE SULFATE 10 MG/ML INJ ONE (04:39)
[2018-01-20] MEDS ORDERED: MORPHINE SULFATE 10 MG/ML INJ IV ONE (04:58)
[2018-01-20 05:03] LABS: ABSOLUTE BASOPHILS # (AUTO) 0.1 10^3/uL (0.0-0.2); ABSOLUTE EOSINOPHILS # (AUTO) 0.3 10^3/uL (0.0-0.6); ABSOLUTE LYMPHOCYTES (AUTO) 2.2 10^3/uL (0.5-4.7); ABSOLUTE MONOCYTES (AUTO) 0.7 10^3/uL (0.1-1.4); ABSOLUTE NEUT (AUTO) 4.9 10^3/uL (1.7-8.2); EOSINOPHILS % (AUTO) 3.1 % (0-6); HEMATOCRIT 35.6 % (36.0-47.0); HEMOGLOBIN 11.8 g/dL (12.0-15.5); LYMPHOCYTES % (AUTO) 27.2 % (13-45); MEAN CORPUSCULAR HEMOGLOBIN 29.9 pg (27.0-33.4); MEAN CORPUSCULAR HGB CONC 33.2 g/dL (32.0-36.0); MEAN CORPUSCULAR VOLUME 90 fl (80-97); MONOCYTES % (AUTO) 8.4 % (3-13); PLATELET COUNT 432 10^3/uL (150-450); RED BLOOD COUNT 3.96 10^6/uL (3.72-5.28); RED CELL DISTRIBUTION WIDTH 14.5 % (11.5-14.0); SEGMENTED NEUTROPHILS % (AUTO) 60.3 % (42-78); TOTAL CELLS COUNTED % (AUTO) 100 %; WHITE BLOOD COUNT 8.1 10^3/uL (4.0-10.5)
[2018-01-20] MEDS ORDERED: HYDROMORPHONE HCL INJ/PF 2 MG/ML AMPULE IV ONE ×2 (05:22→07:24)
[2018-01-20 05:27] LABS: INTERNATIONAL RATION (INR) 0.96; PROTHROMBIN TIME 13.2 SEC (11.4-15.4)
[2018-01-20 05:28] LABS: PARTIAL THROMBOPLASTIN TIME 34.9 SEC (23.5-35.8)
[2018-01-20 05:40] LABS: ALANINE AMINOTRANSFERASE 124 U/L (9-52); ALKALINE PHOSPHATASE 192 U/L (38-126); ANION GAP 9 (5-19); ASPARTATE AMINO TRANSFERASE 86 U/L (14-36); BILIRUBIN,DIRECT 0.4 mg/dL (0.0-0.4); BILIRUBIN,TOTAL 0.5 mg/dL (0.2-1.3); BLOOD UREA NITROGEN 5 mg/dL (7-20); CALCIUM 9.1 mg/dL (8.4-10.2); CARBON DIOXIDE 30 mmol/L (22-30); CHLORIDE 105 mmol/L (98-107); GLUCOSE 98 mg/dL (75-110); POTASSIUM 4.2 mmol/L (3.6-5.0); SODIUM 143.6 mmol/L (137-145); TOTAL PROTEIN 5.7 g/dL (6.3-8.2)
[2018-01-20] MEDS ORDERED: ONDANSETRON HCL INJ/PF 4 MG/2 ML SDV IV ONE (06:57)
[2018-01-20] MEDS ORDERED: ONDANSETRON HCL 8 MG TABLET PO ONE (07:00)
[2018-01-20] MEDS ORDERED: ONDANSETRON 4 MG TAB.RAPDIS PO ONE (07:03)
[2018-01-20 08:25] LABS: APPEARANCE,URINE CLEAR; BILIRUBIN,URINE NEGATIVE (NEGATIVE); COLOR,URINE YELLOW; GLUCOSE, URINE NEGATIVE (NEGATIVE); KETONES,URINE NEGATIVE (NEGATIVE); LEUKOCYTE ESTERASE,URINE NEGATIVE (NEGATIVE); NITRITE,URINE NEGATIVE (NEGATIVE); PROTEIN,URINE NEGATIVE (NEGATIVE); URINE SPECIFIC GRAVITY 1.005; UROBILINOGEN,URINE NEGATIVE mg/dL (<2.0)
--- NOTE | 2018-01-20 08:28 | RADIOLOGY REPORT (SQ) ---
EXAM DESCRIPTION: VENOUS UNILATERAL LOWER COMPLETED DATE/TIME: 01/20/2018 8:13 am REASON FOR STUDY: recent surgery, + leg swelling COMPARISON: None. TECHNIQUE: Dynamic and static eisenberg scale and color images acquired of the right leg venous system. S elected spectral images acquired with additional compression and augmentation maneuvers. The contrala teral common femoral vein and saphenofemoral junction were also imaged. Images stored on PACS. LIMITATIONS: None. FINDINGS: RIGHT COMMON FEMORAL: Normal phasicity, compression and augmentation. No visualized echogenic material on g ray scale. No defects on color images. FEMORAL: Normal compression and augmentation. No visualized echogenic material on eisenberg scale. No defe cts on color images. POPLITEAL: Normal compression, augmentation. No visualized echogenic material on eisenberg scale. No defec ts on color images. CALF VESSELS: Normal compression, augmentation. No visualized echogenic material on eisenberg scale. No de fects on color images. GSV and SSV: Normal compression, augmentation. No visualized echogenic material on eisenberg scale. No def ects on color images. ANY DEEP VENOUS INSUFFICIENCY: Not evaluated. ANY EVIDENCE OF POPLITEAL CYST: No. OTHER: No other significant finding. LEFT COMMON FEMORAL VEIN AND SAPHENOFEMORAL JUNCTION: Normal phasicity, compression and augmentation. No visualized echogenic material on eisenberg scale. No de fects on color images. IMPRESSION: NO EVIDENCE OF DVT OR SVT IN THE RIGHT LEG. TECHNICAL DOCUMENTATION: JOB ID: [id number] [employer]- All Rights Reserved Reading location - IP/workstation name: [email or web address]
[2018-01-20] MEDS ORDERED: FENTANYL CITRATE INJ/PF 100 MCG/2 ML AMPUL IV ONE (09:09)
[2018-01-20 10:39] VITALS: BP 144/85
== END 2018-01-20 10:40 | disposition home or self-care (01) ==
LOC: ER 04:03
DX: M79.604 Pain in right leg (principal); M21.371 Foot drop, right foot; R60.0 Localized edema; I10 Essential (primary) hypertension; Z96.641 Presence of right artificial hip joint; Z87.39 Personal history of other diseases of the musculoskeletal system and connective tissue; Z79.01 Long term (current) use of anticoagulants; Z88.5 Allergy status to narcotic agent; Z91.040 Latex allergy status; Z91.018 Allergy to other foods; Z91.013 Allergy to seafood; Z91.048 Other nonmedicinal substance allergy status
CPT/HCPCS: 96376; 99284; 96372; 96361; 96375; 96365; 36415; 87040; 85025; 85610; 85730; 80053; 81001; 93971; A9270; J3010; J1650; J2270; J1170; J7030; J0696; S0119

== ENCOUNTER 2018-01-22 12:27 | Emergency (ER) | payer MEDICARE, MEDICAID ==
[2018-01-22 12:33] VITALS: BP 125/67
--- NOTE | 2018-01-22 13:07 | RADIOLOGY REPORT (SQ) ---
EXAM DESCRIPTION: HIP RIGHT AP/LATERAL COMPLETED DATE/TIME: 01/22/2018 12:59 pm REASON FOR STUDY: right hip pain post replacement COMPARISON: None. NUMBER OF VIEWS: Two views. TECHNIQUE: AP pelvis and additional frog-leg view of the right hip. LIMITATIONS: None. FINDINGS: 2 AP views of the right hip show a right hip arthroplasty in good position. IMPRESSION: Right hip arthroplasty. TECHNICAL DOCUMENTATION: JOB ID: [id number] [employer]- All Rights Reserved Reading location - IP/workstation name: [email or web address]
[2018-01-22] MEDS ORDERED: HYDROMORPHONE HCL 2 MG TABLET PO ONE (13:24)
[2018-01-22] MEDS ORDERED: PROMETHAZINE HCL 25 MG TABLET PO ONE (13:25)
--- NOTE | 2018-01-22 14:11 | ER Document Report ---
ED Hip Pain/Injury - General Chief Complaint: Hip Pain Stated Complaint: HIP PAIN Time Seen by Provider: 01/22/18 13:24 Notes: Patient had a right total hip replacement 8 days ago. She has been recovering at local rehab facility and has been walking with the assistance of a walker. Has been recovering without major problems until she was scooting in bed this morning and heard a very loud pop from the right hip region associated with severe pain. Unable to have the right leg moved actively or passively. Still painful at this time. Patient had a hip replacement for avascular necrosis. Surgeon is Dr. Delgado in [place]. TRAVEL OUTSIDE OF THE [place] IN LAST 30 DAYS: No - Related Data Allergies/Adverse Reactions: meperidine [From Demerol] Allergy (Severe, Verified 01/22/18 12:33) Psychosis Latex, Natural Rubber Allergy (Intermediate, Verified 01/22/18 12:33) Hives melon Allergy (Verified 01/22/18 12:33) shellfish derived Allergy (Verified 01/22/18 12:33) strawberry Allergy (Verified 01/22/18 12:33) tramadol [From Ultram] Allergy (Verified 01/22/18 12:33) Urinary retention vinyl Allergy (Severe, Uncoded 01/22/18 12:33) Blisters Past Medical History - Social History Smoking Status: Current Every Day Smoker Frequency of alcohol use: None Drug Abuse: Marijuana Family History: Reviewed & Not Pertinent Patient has suicidal ideation: No Patient has homicidal ideation: No - Past Medical History Cardiac Medical History: Reports: Hx Hypertension Pulmonary Medical History: Reports: Hx Bronchitis GI Medical History: Reports: Hx Gastroesophageal Reflux Disease Musculoskeltal Medical History: Reports Hx Arthritis, Reports Hx Musculoskeletal Deformity Psychiatric Medical History: Reports: Hx Depression - anxiety Past Surgical History: Reports: Hx Appendectomy, Hx Cholecystectomy, Hx Gynecologic Surgery - D&C, Hx Hysterectomy, Hx Tubal Ligation Review of Systems - Review of Systems Notes: REVIEW OF SYSTEMS: CONSTITUTIONAL : Denies fever. EENT: Denies eye, ear, nose or mouth or throat pain or other symptoms. CARDIOVASCULAR: Denies chest pain. RESPIRATORY: Denies cough, chest congestion, or shortness of breath. GASTROINTESTINAL: Denies abdominal pain or nausea, vomiting, or diarrhea. GENITOURINARY: Denies difficulty or painful urinating, urinary frequency, blood in urine. MUSCULOSKELETAL: Denies back or neck pain. See HPI. Patient is concerned about swelling in her right lower leg and foot. SKIN: Denies rash or skin lesions. NEUROLOGICAL: Denies LOC or altered mental status. Denies headache. Denies sensory loss or motor deficits. ALL OTHER SYSTEMS REVIEWED AND NEGATIVE. Physical Exam - Vital signs Vitals: Temp Pulse Resp BP Pulse Ox 98.3 F 90 18 125/67 97 01/22/18 12:32 01/22/18 12:32 01/22/18 12:32 01/22/18 12:32 01/22/18 12:32 Interpretation: Normal - Notes Notes: PHYSICAL EXAMINATION: GENERAL: Well-appearing, in no acute distress. Anxious, appears uncomfortable. Vital signs are all normal. HEAD: Atraumatic, normocephalic. EYES: Pupils equal round and reactive to light, extraocular movements intact. ENT: oropharynx clear without exudates. Moist mucous membranes. NECK: Normal range of motion, supple. LUNGS: Breath sounds clear and equal bilaterally. HEART: Regular rate and rhythm without murmurs. ABDOMEN: Soft, nontender. No guarding or rebound. No masses. BACK: No tenderness throughout entire back. EXTREMITIES: Right hip appears to be in normal alignment clinically. Slight movement is not especially painful, but the patient does indicate pain with any significant movement of the right hip joint. Patient has some mild diffuse swelling from the right lower leg down to the feet. Negative Homans bilaterally. Nothing to suggest DVT. Just looks like dependent edema. Recommended the patient elevate the right lower leg with the foot and ankle above the knee, etc. Normal range of motion without pain. Excellent dorsalis pedis pulse palpated. NEUROLOGICAL: Normal speech, normal gait. Normal sensory, motor, and reflex exams. Awake, alert, and oriented x3. Cranial nerves normal. PSYCH: Normal mood, normal affect. SKIN: Warm, dry, no rashes. Course - Re-evaluation Re-evalutation: 01/22/18 14:[address] Delgado and she advised that the patient continue with her rehab as before without any change in limitations. Dr. Delgado indicates that this patient has had several problems since her surgery, one requiring her to be seen by Dr. Delgado in the emergency department. She was reassured learning that the x-ray shows the hip to be in proper location. - Vital Signs Vital signs: Temp Pulse Resp BP Pulse Ox 98.3 F 90 18 125/67 97 01/22/18 12:32 01/22/18 12:32 01/22/18 12:32 01/22/18 12:32 01/22/18 12:32 - Diagnostic Test Radiology results interpreted by me: 01/22/18 14:11 X-ray reveals the prosthetic hip to be in proper location. Discharge - Discharge Clinical Impression: Right hip pain, History of total right hip replacement Condition: Stable Disposition: HOME, SELF-CARE Additional Instructions: Right hip pain Your right hip pain may have been due to some slippage of your surgical hip, but at this time, it appears that the hip is in perfect alignment and you can be discharged back to the rehab facility. I spoke with Dr. Delgado and she recommended that she resume your rehab activities and schedule just as you have been doing. FOLLOW-UP CARE: If you have been referred to a physician for follow-up care, call the physician s office for an appointment as you were instructed or within the next two days. If you experience worsening or a significant change in your symptoms, notify the physician immediately or return to the Emergency Department at any time for re-evaluation. Referrals: ELSA GONZALEZ PA [Primary Care Provider] - Follow up as needed
== END 2018-01-22 14:33 | disposition home or self-care (01) ==
LOC: ER 12:27
DX: M25.551 Pain in right hip (principal); Z96.641 Presence of right artificial hip joint; F17.200 Nicotine dependence, unspecified, uncomplicated; F12.10 Cannabis abuse, uncomplicated; I10 Essential (primary) hypertension; Z88.5 Allergy status to narcotic agent; Z91.040 Latex allergy status; Z91.018 Allergy to other foods; Z91.013 Allergy to seafood; Z91.048 Other nonmedicinal substance allergy status
CPT/HCPCS: 99284; 73502; A9270 ×2

== ENCOUNTER 2018-02-13 20:43 | Emergency (ER) | payer MEDICARE, MEDICAID ==
[2018-02-13 21:03] VITALS: BP 158/92
[2018-02-13] MEDS ORDERED: MORPHINE SULFATE 10 MG/ML INJ IM ONE (21:31)
--- NOTE | 2018-02-13 21:31 | ER Document Report ---
ED General - General Chief Complaint: Hip Pain Stated Complaint: KNEE PAIN Time Seen by Provider: 02/13/18 21:23 Mode of Arrival: Medic Information source: Patient Notes: 37-year-old female brought to the emergency department by EMS status post fall. Patient states that she had surgery on her hip one month ago by Dr. Delgado in [facility]. Patient states that since then she has had a right foot drop. Patient states that tonight she tripped over her right foot and fell onto both of her knees. Patient denies any head injury or loss of consciousness. Patient states that she is having pain to her bilateral knees, her right hip, right femur. Patient states that she is on narcotic pain medication for her hip. TRAVEL OUTSIDE OF THE [place] IN LAST 30 DAYS: No - HPI Onset: Just prior to arrival Onset/Duration: Sudden Quality of pain: Sharp, Stabbing, Throbbing Severity: Moderate Associated symptoms: None Exacerbated by: Movement Relieved by: Denies Similar symptoms previously: No Recently seen / treated by doctor: No - Related Data Allergies/Adverse Reactions: meperidine [From Demerol] Allergy (Severe, Verified 01/22/18 12:33) Psychosis Latex, Natural Rubber Allergy (Intermediate, Verified 01/22/18 12:33) Hives melon Allergy (Verified 01/22/18 12:33) shellfish derived Allergy (Verified 01/22/18 12:33) strawberry Allergy (Verified 01/22/18 12:33) tramadol [From Ultram] Allergy (Verified 01/22/18 12:33) Urinary retention vinyl Allergy (Severe, Uncoded 01/22/18 12:33) Blisters Past Medical History - General Information source: Patient - Social History Smoking Status: Current Every Day Smoker Family History: Reviewed & Not Pertinent - Past Medical History Cardiac Medical History: Reports: Hx Hypertension Pulmonary Medical History: Reports: Hx Bronchitis Renal/ Medical History: Denies: Hx Peritoneal Dialysis GI Medical History: Reports: Hx Gastroesophageal Reflux Disease Musculoskeletal Medical History: Reports Hx Arthritis, Reports Hx Musculoskeletal Deformity Psychiatric Medical History: Reports: Hx Depression - anxiety Past Surgical History: Reports: Hx Appendectomy, Hx Cholecystectomy, Hx Gynecologic Surgery - D&C, Hx Hysterectomy, Hx Tubal Ligation Review of Systems - Review of Systems Constitutional: No symptoms reported EENT: No symptoms reported Cardiovascular: No symptoms reported Respiratory: No symptoms reported Gastrointestinal: No symptoms reported Genitourinary: No symptoms reported Female Genitourinary: No symptoms reported Musculoskeletal: Joint pain Skin: No symptoms reported Hematologic/Lymphatic: No symptoms reported Neurological/Psychological: No symptoms reported -: Yes All other systems reviewed and negative Physical Exam - Vital signs Vitals: Temp Pulse Resp BP Pulse Ox 98.5 F 87 24 H 158/92 H 97 02/13/18 21:01 02/13/18 21:01 02/13/18 21:01 02/13/18 21:01 02/13/18 21:01 Interpretation: Normal - Notes Notes: PHYSICAL EXAMINATION: GENERAL: Well-appearing, well-nourished and in no acute distress. HEAD: Atraumatic, normocephalic. EYES: Pupils equal round and reactive to light, extraocular movements intact, conjunctiva are normal. ENT: Nares patent, oropharynx clear without exudates. Moist mucous membranes. NECK: Normal range of motion, supple without lymphadenopathy LUNGS: Breath sounds clear to auscultation bilaterally and equal. No wheezes rales or rhonchi. HEART: Regular rate and rhythm without murmurs ABDOMEN: Soft, nontender, nondistended abdomen. No guarding, no rebound. No masses appreciated. Female : deferred Musculoskeletal: Tenderness to palpation of the R hip, R knee, L knee. Patient is able to flex/extend at hip and knees despite pain. 2+ DP/PT pulses. NEUROLOGICAL: Cranial nerves grossly intact. Normal speech, normal gait. Normal sensory, motor exams PSYCH: Normal mood, normal affect. SKIN: Warm, Dry, normal turgor, Abrasion to the L knee. Course - Re-evaluation Re-evalutation: 02/13/18 23:11 XR of the hip/pelvis, knees obtained. No acute process identified. Patient instructed to follow up with her orthopedic surgeon this week as scheduled, to take her medication as directed, and to return for worsening symptoms. - Vital Signs Vital signs: Temp Pulse Resp BP Pulse Ox 98.5 F 87 24 H 158/92 H 97 02/13/18 21:01 02/13/18 21:01 02/13/18 21:01 02/13/18 21:01 02/13/18 21:01 Discharge - Discharge Clinical Impression: Hip pain, right, Abrasion Knee pain, bilateral Qualifiers: Chronicity: acute Qualified Code(s): M25.561 - Pain in right knee Condition: Good Disposition: HOME, SELF-CARE Instructions: Abrasions ([facility]) Referrals: ELSA GONZALEZ PA [Primary Care Provider] - Follow up as needed
--- NOTE | 2018-02-13 22:51 | RADIOLOGY REPORT (SQ) ---
Plain Film Of The Knee RIGHT Clinical History: Knee pain. Comparison: None Technique: 5 views of the knee are submitted for review. Findings: Postoperative changes of the proximal femur are demonstrated,. There is no evidence for acute fracture. Bone mineralization is decreased. Soft tissues are edematous. Joint spaces are maintained. Degenerative changes demonstrated. Impression: Degenerative changes demonstrated with incompletely imaged post op changes of the proximal femur.
--- NOTE | 2018-02-13 22:54 | RADIOLOGY REPORT (SQ) ---
Plain Film Of The Knee LEFT Clinical History: Knee pain. Comparison: None Technique: 4 views of the knee are submitted for review. Findings: Tibial spines with chondrocalcinosis. There is no evidence for acute fracture. Bone mineralization is decreased. Soft tissues are grossly unremarkable. Joint spaces demonstrate degenerative change. Impression: Degenerative change of the knee.
--- NOTE | 2018-02-13 22:56 | RADIOLOGY REPORT (SQ) ---
PLAIN FILM HIP RIGHT CLINICAL HISTORY: Hip pain. TECHNIQUE: 2 views of the hip are submitted for review. COMPARISON: May 19, 2017 FINDINGS: There is no evidence for acute fracture. Bone mineralization is decreased. Soft tissues are edematous. Joint spaces are maintained. Post op changes are present of the right hip. IMPRESSION: Postoperative changes with right-sided arthroplasty. No evidence of orthopedic hardware fracture.
== END 2018-02-13 23:45 | disposition home or self-care (01) ==
LOC: ER 20:43
DX: S80.212A Abrasion, left knee, initial encounter (principal); M25.551 Pain in right hip; M25.561 Pain in right knee; M25.562 Pain in left knee; M89.8X8 Other specified disorders of bone, other site; W01.0XXA Fall on same level from slipping, tripping and stumbling without subsequent striking against object, initial encounter; F17.200 Nicotine dependence, unspecified, uncomplicated; I10 Essential (primary) hypertension; M21.371 Foot drop, right foot; Z98.890 Other specified postprocedural states; Z79.891 Long term (current) use of opiate analgesic; Z88.5 Allergy status to narcotic agent; Z91.040 Latex allergy status; Z91.013 Allergy to seafood; Z91.048 Other nonmedicinal substance allergy status; Z91.018 Allergy to other foods
CPT/HCPCS: 99283; 96372; 73502; 73564 ×2; J2270

== ENCOUNTER → 2019-07-16 | Outpatient (CLI) | payer MEDICARE, MEDICAID ==
--- NOTE | 2019-07-16 12:47 | RADIOLOGY REPORT (SQ) ---
EXAM DESCRIPTION: MRI LUMBAR SPINE WITHOUT COMPLETED DATE/TIME: 07/16/2019 10:59 am REASON FOR STUDY: M54.5 LOWER BACK PAIN M54.5 LOW BACK PAIN COMPARISON: None. TECHNIQUE: Sagittal and Axial imaging includes T1, T2, STIR and gradient echo sequences. Coronal T2/ HASTE imaging. LIMITATIONS: None. FINDINGS: VISUALIZED UPPER ABDOMEN: Limited evaluation. No acute or suspicious findings suggested. SEGMENTATION: No transitional anatomy. The lowest well-developed disc space is labeled L5-S1. ALIGNMENT: Very slight convex left scoliotic curve. Minimal grade 1 listhesis at L5-S1. VERTEBRAE: Intact. BONE MARROW: Normal. No marrow replacement or reactive changes. DISC SIGNAL: Variable signal and height loss. POSTERIOR ELEMENTS: Bilateral pars defects at L5. Mild facet arthropathy without bulky overgrowth o therwise. HARDWARE: None in the spine. CORD AND CONUS: Normal in size and signal intensity. Conus at the appropriate level. SOFT TISSUES: No aortic aneurysm seen. No bulky retroperitoneal adenopathy or mass. No paraspinal mas s or fluid. L1-L2: No significant spinal stenosis or exit foraminal stenosis. L2-L3: No significant spinal stenosis or exit foraminal stenosis. L3-L4: No significant spinal stenosis or exit foraminal stenosis. L4-L5: Mild facet arthropathy. Associated relatively mild bilateral foraminal narrowing. L5-S1: Mild malalignment as above. Associated noncritical foraminal stenosis. LOWER THORACIC: Incompletely imaged. No stenosis seen. SACRUM: Visualized upper sacrum intact. OTHER: No other significant findings. IMPRESSION: 1. L5 bilateral spondylolysis. Minimal grade 1 spondylolisthesis at L5-S1. 2. No evidence of significant central stenosis. No critical foraminal narrowing. TECHNICAL DOCUMENTATION: JOB ID: [id number] [employer]- All Rights Reserved Reading location - IP/workstation name: [email or web address]
== END ==
LOC: RAD 10:09
PROVIDERS: ATTEND Orthopaedic Surgery
DX: M47.896 Other spondylosis, lumbar region (principal); M54.5 Low back pain
CPT/HCPCS: 72148

== ENCOUNTER 2020-02-20 14:49 | Emergency (ER) | payer MEDICAID, MEDICARE ==
[2020-02-20 14:58] VITALS: BP 126/76
[2020-02-20] MEDS ORDERED: OXYCODONE-ACETAMINOPHEN 5-325 MG TABLET PO ONE (15:58)
--- NOTE | 2020-02-20 16:01 | ER Document Report ---
HPI - HPI Time Seen by Provider: 02/20/20 15:57 Onset: Other - 2 weeks to Onset/Duration: Worse Quality of pain: Sharp Context: Patient presents complaining of abscess to the left ear for the past 2 weeks and 2 lesions to the right axilla for the past week. Patient was placed on Bactrim by her doctor 4 days ago and finished the prescription today. Patient denies any fever or history of MRSA. Associated Symptoms: Earache. denies: Fever Exacerbated by: Movement Relieved by: Denies Similar symptoms previously: Yes Recently seen / treated by doctor: No - ROS ROS below otherwise negative: Yes Systems Reviewed and Negative: Yes All other systems reviewed and negative - CONSTITUTIONAL Constitutional: DENIES: Fever, Chills - EENT EENT: REPORTS: Ear Pain - REPRODUCTIVE Reproductive: DENIES: : - MUSCULOSKELETAL Musculoskeletal: REPORTS: Extremity pain - DERM Skin Color: Erythema Notes: Abscess to right axilla and left ear Past Medical History - General Information source: Patient - Social History Smoking Status: Current Every Day Smoker Drug Abuse: None Occupation: None Lives with: Family Family History: Reviewed & Not Pertinent - Past Medical History Cardiac Medical History: Reports: Hx Hypertension Pulmonary Medical History: Reports: Hx Bronchitis Renal/ Medical History: Denies: Hx Peritoneal Dialysis GI Medical History: Reports: Hx Gastroesophageal Reflux Disease Musculoskeletal Medical History: Reports Hx Arthritis, Reports Hx Muscul oskeletal Deformity Psychiatric Medical History: Reports: Hx Depression - anxiety Past Surgical History: Reports: Hx Appendectomy, Hx Cholecystectomy, Hx Gynecologic Surgery - D&C, Hx Hysterectomy, Hx Tubal Ligation Vertical Provider Document - CONSTITUTIONAL Agree With Documented VS: Yes Exam Limitations: No Limitations General Appearance: WD/WN, No Apparent Distress - INFECTION CONTROL TRAVEL OUTSIDE OF THE [place] IN LAST 30 DAYS: No - HEENT HEENT: Atraumatic, Normocephalic Notes: Abscess to the helix of the left ear - NECK Neck: Normal Inspection, Supple. negative: Lymphadenopathy-Left, Lymphadenopathy-Right - RESPIRATORY Respiratory: Breath Sounds Normal, No Respiratory Distress - CARDIOVASCULAR Cardiovascular: Regular Rate, Regular Rhythm, No Murmur - BACK Back: Normal Inspection - MUSCULOSKELETAL/EXTREMETIES Musculoskeletal/Extremeties: MAEW, FROM - NEURO Level of Consciousness: Awake, Alert, Appropriate Motor/Sensory: No Motor Deficit - DERM Integumentary: Warm, Dry, Abscess - Fluctuant abscess to the left ear, 3 erythematous nodular lesions to right axilla worrisome for early abscess Course - Vital Signs Vital signs: Temp Pulse Resp BP Pulse Ox 98.1 F 90 20 126/76 H 100 02/20/20 14:56 02/20/20 14:56 02/20/20 14:56 02/20/20 14:56 02/20/20 14:56 Procedures - Incision and Drainage Left Head Type: Simple Anesthetic type: 1% Lidocaine Blade size: 11 I&D procedure: Betadine prep applied Incision Method: Incision made by scalpel Amount/type of drainage: Moderate amount of purulent drainage Adult Head Front/Back picture: 1 - Abscess Right Arm Type: Simple Anesthetic type: 1% Lidocaine Blade size: 11 I&D procedure: Betadine prep applied Incision Method: Incision made by scalpel Amount/type of drainage: Small amount of bloody drainage Notes: 02/20/20 18:35 I&D of 3 small erythematous nodular lesions to right axilla Discharge - Discharge Clinical Impression: Abscess of left external ear, Encounter for incision and drainage procedure Condition: Stable Disposition: HOME, SELF-CARE Instructions: Abscess ([facility]), Cephalexin ([facility]), Oral Narcotic Medication ([facility]), Post Incision and Drainage, Trimethoprim-Sulfa ([facility]) Additional Instructions: Return immediately for any new or worsening symptoms Followup with your primary care provider, call tomorrow to make a followup appointment Wound culture is pending, we will call if you need any different treatment Prescriptions: Sulfamethoxazole/Trimethoprim [Bactrim Ds Tablet] 1 each PO BID #20 tablet Mupirocin [Bactroban 2% Ointment 22 gm] 1 applic TP TID #22 gm Cephalexin Monohydrate [Keflex 500 mg Capsule] 500 mg PO Q6H 5 Days #20 capsule Referrals: THOMAS OLIVER MD [ACTIVE STAFF] - Follow up as needed
[2020-02-20] MEDS ORDERED: LIDOCAINE 1% INJ-PF (10 MG/ML) 30 ML SDV INFIL ONE (17:17)
[2020-02-20] MEDS ORDERED: SULFAMETHOXAZOLE/TRIMETHOPRIM 800-160 MG TABLET PO ONE (17:18)
[2020-02-20] MEDS ORDERED: CEPHALEXIN 500 MG CAPSULE PO ONE (17:18)
== END 2020-02-20 19:00 | disposition home or self-care (01) ==
LOC: ER 14:49
DX: H60.02 Abscess of left external ear (principal); H92.02 Otalgia, left ear; F17.200 Nicotine dependence, unspecified, uncomplicated; I10 Essential (primary) hypertension
CPT/HCPCS: 99282; 87070; 87205; 87077; 87186; 69000; A9270 ×3; J3490

== ENCOUNTER 2020-02-22 14:18 | Emergency (ER) | payer MEDICARE, MEDICAID ==
--- NOTE | 2020-02-22 14:41 | ER Document Report ---
ED Medical Screen (RME) - General Chief Complaint: Abscess Stated Complaint: ABSCESS Time Seen by Provider: 02/22/20 14:29 Primary Care Provider: SHELLY CANALES DPM [Primary Care Provider] - Follow up as needed Notes: Patient presents complaining of infection to the left ear for the past 2 weeks. Patient was here 2 days ago and had incision and drainage procedure. Patient denies any improvement after symptoms. Patient states that area to right axilla is more painful as well. Patient also complains of right lower back pain. Patient's wound culture did grow out MRSA. I have greeted and performed a rapid initial assessment of this patient. A comprehensive ED assessment and evaluation of the patient, analysis of test results and completion of the medical decision making process will be conducted by additional ED providers. TRAVEL OUTSIDE OF THE [place] IN LAST 30 DAYS: No - Related Data Allergies/Adverse Reactions: meperidine [From Demerol] Allergy (Severe, Verified 02/22/20 14:30) Psychosis Latex, Natural Rubber Allergy (Intermediate, Verified 02/22/20 14:30) Hives melon Allergy (Verified 02/22/20 14:30) shellfish derived Allergy (Verified 02/22/20 14:30) strawberry Allergy (Verified 02/22/20 14:30) tramadol [From Ultram] Allergy (Verified 02/22/20 14:30) Urinary retention vinyl Allergy (Severe, Uncoded 02/22/20 14:30) Blisters Home Medications: prozac. norco. percocet. gabapentin. topamax. diclofenac. tazanidine Past Medical History - Social History Chew tobacco use (# tins/day): No Frequency of alcohol use: None Drug Abuse: Marijuana - Past Medical History Cardiac Medical History: Reports: Hx Hypertension Pulmonary Medical History: Reports: Hx Bronchitis Renal/ Medical History: Denies: Hx Peritoneal Dialysis GI Medical History: Reports: Hx Gastroesophageal Reflux Disease Musculoskeltal Medical History: Reports Hx Arthritis, Reports Hx Musculoskeletal Deformity Psychiatric Medical History: Reports: Hx Depression - anxiety Past Surgical History: Reports: Hx Appendectomy, Hx Cholecystectomy, Hx Gynecologic Surgery - D&C, Hx Hysterectomy, Hx Tubal Ligation Physical Exam - Vital signs Vitals: Temp 98.8 F 02/22/20 14:30 - General General appearance: Alert, Anxious Notes: Tenderness, erythema to the marc of the left helix, right lower paraspinal tenderness Course - Vital Signs Vital signs: Temp Pulse Resp BP Pulse Ox 98.8 F 02/22/20 14:30 Doctor's Discharge - Discharge Referrals: SHELLY CANALES DPM [Primary Care Provider] - Follow up as needed
[2020-02-22 15:07] LABS: ABSOLUTE BASOPHILS # (AUTO) 0.1 10^3/uL (0.0-0.2); ABSOLUTE EOSINOPHILS # (AUTO) 0.2 10^3/uL (0.0-0.6); ABSOLUTE LYMPHOCYTES (AUTO) 2.6 10^3/uL (0.5-4.7); ABSOLUTE MONOCYTES (AUTO) 0.5 10^3/uL (0.1-1.4); ABSOLUTE NEUT (AUTO) 3.9 10^3/uL (1.7-8.2); BASOPHILS % (AUTO) 1.4 % (0-2); HEMATOCRIT 41.9 % (36.0-47.0); HEMOGLOBIN 14.1 g/dL (12.0-15.5); LYMPHOCYTES % (AUTO) 36.3 % (13-45); MEAN CORPUSCULAR HEMOGLOBIN 30.6 pg (27.0-33.4); MEAN CORPUSCULAR HGB CONC 33.7 g/dL (32.0-36.0); MEAN CORPUSCULAR VOLUME 91 fl (80-97); MONOCYTES % (AUTO) 6.3 % (3-13); PLATELET COUNT 291 10^3/uL (150-450); RED BLOOD COUNT 4.61 10^6/uL (3.72-5.28); RED CELL DISTRIBUTION WIDTH 13.4 % (11.5-14.0); TOTAL CELLS COUNTED % (AUTO) 100 %; WHITE BLOOD COUNT 7.3 10^3/uL (4.0-10.5)
[2020-02-22 15:31] LABS: ANION GAP 9 (5-19); BLOOD UREA NITROGEN 13 mg/dL (7-20); CALCIUM 9.8 mg/dL (8.4-10.2); CARBON DIOXIDE 22 mmol/L (22-30); CHLORIDE 109 mmol/L (98-107); POTASSIUM 4.7 mmol/L (3.6-5.0)
[2020-02-22 15:45] LABS: GLUCOSE 67 mg/dL (75-110)
[2020-02-23] MEDS ORDERED: MORPHINE SULFATE 10 MG/ML INJ IV ONE (02:35)
[2020-02-23] MEDS ORDERED: ONDANSETRON HCL INJ/PF 4 MG/2 ML SDV IV ONE (02:35)
--- NOTE | 2020-02-23 02:39 | ER Document Report ---
ED General - General TRAVEL OUTSIDE OF THE [place] IN LAST 30 DAYS: No - Related Data Home Medications: prozac. norco. percocet. gabapentin. topamax. diclofenac. tazanidine <BRENDA SOLIZ - Last Filed: 02/23/20 07:58> <SAULO CHAVEZ - Last Filed: 02/23/20 08:49> - General Chief Complaint: Abscess Stated Complaint: ABSCESS Time Seen by Provider: 02/22/20 14:29 Primary Care Provider: SHELLY CANALES DPM [Primary Care Provider] - Follow up tomorrow LARISA ARREOLA DO [ASSOCIATE] - Follow up as needed Notes: Patient is a 39-year-old female that comes to the emergency department for chief complaint of an abscess to her left ear and face and also over the right axillary area. She was seen 2 days ago here, had the area at the left face/ear opened with purulent drainage, she also had the area over the right armpit opened. She is on Bactrim and Keflex. She states she has been compliant with her antibiotics. She states that the right axillary area has actually significantly improved and the "hardness went away", however the face worsened with spreading to the ear, she states that she poked the ear herself yesterday and had purulent drainage last night, however the area has spread and become more painful and red with additional swelling. She denies fever. She is not a diabetic. Past medical history of hypertension, GERD, chronic pain, appendectomy, cholecystectomy, hysterectomy. (BRENDA SOLIZ) - Related Data Allergies/Adverse Reactions: meperidine [From Demerol] Allergy (Severe, Verified 02/22/20 14:30) Psychosis Latex, Natural Rubber Allergy (Intermediate, Verified 02/22/20 14:30) Hives melon Allergy (Verified 02/22/20 14:30) shellfish derived Allergy (Verified 02/22/20 14:30) strawberry Allergy (Verified 02/22/20 14:30) tramadol [From Ultram] Allergy (Verified 02/22/20 14:30) Urinary retention vinyl Allergy (Severe, Uncoded 02/22/20 14:30) Blisters Past Medical History - General Information source: Patient - Social History Smoking Status: Current Every Day Smoker Chew tobacco use (# tins/day): No Frequency of alcohol use: None Drug Abuse: Marijuana Lives with: Family Family History: Reviewed & Not Pertinent Patient has homicidal ideation: No - Past Medical History Cardiac Medical History: Reports: Hx Hypertension Pulmonary Medical History: Reports: Hx Bronchitis Renal/ Medical History: Denies: Hx Peritoneal Dialysis GI Medical History: Reports: Hx Gastroesophageal Reflux Disease Musculoskeletal Medical History: Reports Hx Arthritis, Reports Hx Musculoskeletal Deformity Psychiatric Medical History: Reports: Hx Depression - anxiety Past Surgical History: Reports: Hx Appendectomy, Hx Cholecystectomy, Hx Gynecologic Surgery - D&C, Hx Hysterectomy, Hx Tubal Ligation - Immunizations Immunizations up to date: Yes Hx Diphtheria, Pertussis, Tetanus Vaccination: Yes <BRENDA SOLIZ - Last Filed: 02/23/20 07:58> Review of Systems - Review of Systems Constitutional: No symptoms reported EENT: No symptoms reported, See HPI Cardiovascular: No symptoms reported Respiratory: No symptoms reported Gastrointestinal: No symptoms reported Genitourinary: No symptoms reported Female Genitourinary: No symptoms reported Musculoskeletal: No symptoms reported Skin: See HPI Hematologic/Lymphatic: No symptoms reported Neurological/Psychological: No symptoms reported <BRENDA SOLIZ - Last Filed: 02/23/20 07:58> Physical Exam <BRENDA SOLIZ - Last Filed: 02/23/20 07:58> - Vital signs Vitals: Temp 98.8 F 02/22/20 14:30 - Notes Notes: GENERAL: Alert, interacts well. No acute distress. HEAD: Normocephalic, atraumatic. EYES: Pupils equal, round, and reactive to light. Extraocular movements intact. ENT: Oral mucosa moist, tongue midline. Oropharynx unremarkable. Airway patent. Nares patent, sinuses non-tender. There is erythema over the left side of the face extending up to the tragus, up to the leg of the helix, and into the ear canal. There is no fluctuant or indurated area noted, there is no current drainage from the area. Tympanic membrane is normal. No significant swelling of the ear canal. NECK: Full range of motion. Supple. Trachea midline. No lymphadenopathy. LUNGS: Clear to auscultation bilaterally, no wheezes, rales, or rhonchi. No respiratory distress. Non-tender chest wall. HEART: Regular rate and rhythm. No murmur ABDOMEN: Soft, non-tender. Non-distended. EXTREMITIES: Moves all 4 extremities spontaneously. No edema, normal radial and dorsalis pedis pulses bilaterally. No cyanosis. BACK: no cervical, thoracic, lumbar midline tenderness. No saddle anesthesia, no rmal distal neurovascular exam. Moves all extremities in full range of motion. NEUROLOGICAL: Alert and oriented x3. Normal speech. Cranial nerves II through XII grossly intact. Strength 5/5 in all extremities. PSYCH: Normal affect, normal mood. SKIN: There are minor areas of erythema in 3 different locations in the right axilla, there is however no induration or fluctuance, there is no spreading erythema, there is no noted tenderness to the area. Otherwise unremarkable skin exam (except see ENT exam above) (BRENDA SOLIZ) Course - Laboratory Result Diagrams: 02/22/20 14:55 02/22/20 14:55 <BRENDA SOLIZ - Last Filed: 02/23/20 07:58> - Laboratory Result Diagrams: 02/22/20 14:55 02/22/20 14:55 <SAULO CHAVEZ - Last Filed: 02/23/20 08:49> - Re-evaluation Re-evalutation: Patient has erythema and tenderness stretching from the left side of the face, extending to the tragus, extending to the leg of the helix, and extending into the ear canal. No fever. No leukocytosis. CT performed and shows edema and cellulitis but no fluid collection, bony involvement, or abscess. I discussed with Dr. Wolff, she recommends I consult ENT. 02/23/20 04:[address] Arreola, ENT on-call. I discussed history, examination, work-up. He recommends patient continue Bactroban, Bactrim DS, and add Levaquin p.o. He states that since there is no abscess on scan at this time patient can follow-up with her primary care for recheck with return precautions. After we started the vancomycin infusion patient started clutching her chest and crying out in pain, she appears to be having some sort of spasm, she is medicated, discontinue, we stop the vancomycin and shortly after this the symptoms did stop. This actually did appear to be related to the vancomycin infusion, EKG and chest x-ray were checked because of the chest pain and these were unremarkable, troponin is negative, cycled troponin was performed. Very low suspicion that this is cardiac. Patient will be discharged with the antibiotic recommendations, pain medication, and return precautions which I discussed at length. Patient states appreciation and agreement. (BRENDA SOLIZ) 02/23/20 08:44 Patient reports that she needs to leave to go take her grandson to a doctor appointment. The nurse discussed with patient she is still pending a troponin. Patient still desires to leave. I discussed with the patient that we are still pending her last troponin. I discussed with patient that if she leaves her condition can deteriorate and there is potential for . Patient still desires to leave AMA and not wait for her results of her last troponin. She has signed the A paperwork. She does state to call her with the lab results if they are abnormal. She may return to the emergency department if she has worsening symptoms or development of new symptoms. I did discuss with her that I do recommend she follows up with her primary care as her creatinine was slightly elevated at 1.35 today as well as follow-up with the ENT as-I discussed with her. Patient has chosen to leave the facility against medical advice. The relevant issues have been reviewed and discussed with the patient and family at the bedside. At the time of this assessment there is no indication for involuntary commitment. The patient is alert, oriented, and able to express clearly their reasoning for not wanting to remain in the emergency department for further treatment. The patient is not clinically psychotic, intoxicated, and denies and suicidal ideation. Differential or suspected diagnoses based on medical screening exam: unspecified chest pain. The patient is aware of the concerning diagnoses and acknowledges understanding of the reasons for the following recommendations: chest pain, possible KS The following recommendations/services were offered and refused: waiting for troponin results. She will be notified if trop is negative. The following risks were explained: , permanent disability, loss of function Clinical impression: Patient is competent to make decisions regarding the medical that is being offered. Paperwork. She acknowledges and verbalizes the risks of leaving the emergency department prior to her last results. (SAULO CHAVEZ) - Vital Signs Vital signs: Temp Pulse Resp BP Pulse Ox 98.8 F 15 149/84 H 96 02/22/20 14:30 02/23/20 08:01 02/23/20 08:01 02/23/20 08:01 - Laboratory Laboratory results interpreted by me: 07/22/20 07/23/20 14:55 06:40 Chloride 109 H Creatinine 1.35 H Est GFR ( Amer) 52 L Est GFR (MDRD) Non-Af 43 L Glucose 67 L Urine Blood MODERATE H Discharge <BRENDA SOLIZ - Last Filed: 02/23/20 07:58> <SAULO CHAVEZ - Last Filed: 02/23/20 08:49> - Discharge Clinical Impression: Facial cellulitis, Cellulitis of left ear Chest pain Qualifiers: Chest pain type: unspecified Qualified Code(s): R07.9 - Chest pain, unspecified Condition: Stable Disposition: HOME, SELF-CARE Additional Instructions: You have a cellulitis in the left facial and ear area into your ear canal. There is no abscess seen. I spoke with ENT Dr. Arreola today, please take the Bactrim, apply the Bactroban ointment, and take the Levaquin antibiotic additionally. You received your first dose of this today. Take pain medication only if needed. Call today for primary care follow-up and additional management. You appear to have had a reaction to the antibiotic vancomycin causing spasm of your chest wall, I recommend you avoid this in the future. Return if you worsen including increased swelling of the face or ear, spreading redness, spiking fever, vomiting, or any other concerning or worsening symptoms. Prescriptions: Levofloxacin [Levaquin 750 mg Tablet] 750 mg PO DAILY #5 tablet Oxycodone HCl/Acetaminophen [Percocet 5-325 mg Tablet] 1 - 2 tab PO TID PRN #12 tab PRN Reason: Referrals: SHELLY CANALES DPM [Primary Care Provider] - Follow up tomorrow LARISA ARREOLA DO [ASSOCIATE] - Follow up as needed
--- NOTE | 2020-02-23 03:47 | RADIOLOGY REPORT (SQ) ---
EXAM DESCRIPTION: RadLex: CT ORBITS WITH IV CONTRAST CLINICAL HISTORY: 39 years Female; L ear infection/abscess TECHNIQUE: High resolution axial CT of the orbits and temporal bones with intravenous contrast, with sagittal and coronal reformatted images. All CT scans at this facility use dose modulation, iterative reconstruction, and/or weight based dosing when appropriate to reduce radiation dose to as low as reasonably achievable. COMPARISON: None. FINDINGS: There is edema and enhancement involving the left external ear, extending partially along the external auditory canal. The bony segment of the external auditory canal is normal. No focal fluid collections. No mastoid effusion. No orbital/retro-orbital edema. Facial bones are intact. Mandible is intact. Paranasal sinuses are clear. Visualized portions of the brain are unremarkable. IMPRESSION: 1. Edema and enhancement of a portion of the left external ear and external auditory canal, consistent with an external otitis/cellulitis. 2. No evidence for abscess.
[2020-02-23] MEDS: VANCOMYCIN HCL INJ 1000 MG VIAL IV ONE ×2 (04:11→04:45)
[2020-02-23] MEDS ORDERED: LEVOFLOXACIN 750 MG TABLET PO ONE (04:11)
[2020-02-23] MEDS ORDERED: LIDOCAINE 2% VISCOUS SOLN 15 ML UDCUP PO ONE (04:30)
[2020-02-23] MEDS ORDERED: MAG HYDROX/AL HYDROX/SIMETH SUSP 30 ML UDCUP PO ONE (04:30)
[2020-02-23] MEDS ORDERED: METOCLOPRAMIDE HCL ORAL SOLN 10 MG/10 ML UDCUP PO ONE (04:30)
[2020-02-23] MEDS ORDERED: FENTANYL CITRATE INJ/PF 100 MCG/2 ML AMPUL IV ONE (04:47)
--- NOTE | 2020-02-23 05:58 | RADIOLOGY REPORT (SQ) ---
EXAM DESCRIPTION: X-ray single view chest. CLINICAL HISTORY: 39 years Female, chest pain COMPARISON: 05/18/2017 TECHNIQUE: Single portable x-ray view of the chest performed on 02/23/2020 at 5:39 AM FINDINGS: The lungs are well expanded and are clear. There is no evidence of a pneumothorax. The cardiac silhouette is normal in size and configuration. The mediastinal contours are normal. No acute osseous abnormality is identified. No focal soft tissue abnormalities are seen. Lines and tubes: None. IMPRESSION: No evidence of acute intrathoracic disease.
[2020-02-23 07:05] LABS: APPEARANCE,URINE CLEAR; BILIRUBIN,URINE NEGATIVE (NEGATIVE); COLOR,URINE YELLOW; GLUCOSE, URINE NEGATIVE (NEGATIVE); KETONES,URINE NEGATIVE (NEGATIVE); LEUKOCYTE ESTERASE,URINE NEGATIVE (NEGATIVE); NITRITE,URINE NEGATIVE (NEGATIVE); PROTEIN,URINE NEGATIVE (NEGATIVE); URINE SPECIFIC GRAVITY 1.033; UROBILINOGEN,URINE NEGATIVE mg/dL (<2.0)
[2020-02-23 08:43] VITALS: BP 149/84
--- NOTE | 2020-02-23 09:23 | EKG REPORT ---
SEVERITY:- ABNORMAL ECG - SINUS RHYTHM : Confirmed by: Tosin Pittman 23-Feb-2020 09:23:03
== END 2020-02-23 08:43 | disposition home or self-care (01) ==
LOC: ER 14:18
DX: L03.211 Cellulitis of face (principal); R07.9 Chest pain, unspecified; Z88.8 Allergy status to other drugs, medicaments and biological substances; F17.200 Nicotine dependence, unspecified, uncomplicated; I10 Essential (primary) hypertension
CPT/HCPCS: 93005; 99284; 96374; 96375; 36415; 83690; 85025; 80048; 81001; 84484; 71045; 70481; 93010; J3010; J3490; A9270 ×3; J2270; J2405; J3370

== ENCOUNTER 2020-02-25 14:50 | Emergency (ER) | payer MEDICARE ==
--- NOTE | 2020-02-25 15:23 | ER Document Report ---
ED Medical Screen (RME) - General Chief Complaint: Palpitations Stated Complaint: RAPID HEART BEAT Time Seen by Provider: 02/25/20 15:19 Primary Care Provider: SHELLY CANALES DPM [Primary Care Provider] - Follow up as needed Mode of Arrival: Ambulatory Information source: Patient Notes: 39-year-old female presented to ED for tachycardia palpitations. She states she was just in the ER 3 days ago when she is only urinated twice since she left here. She states she has been drinking a lot of water and still not urinating. She states she is very weak very tired has no energy. When she first came in she stated her pulse was 148. We got him in a chair get a EKG was in 120s. I have brought her back to the triage area and her pulse is down to 108-111. Tem perature is 98.7 O2 sats 99% blood pressure is 132/82. She states she normally smokes a pack a day but she is only smoked 1 cigarette today. She states last time she was here she was told she had low kidney function I have greeted and performed a rapid initial assessment of this patient. A comprehensive ED assessment and evaluation of the patient, analysis of test results and completion of medical decision making process will be conducted by an additional ED providers. TRAVEL OUTSIDE OF THE [place] IN LAST 30 DAYS: No - Related Data Allergies/Adverse Reactions: meperidine [From Demerol] Allergy (Severe, Verified 02/22/20 14:30) Psychosis Latex, Natural Rubber Allergy (Intermediate, Verified 02/22/20 14:30) Hives melon Allergy (Verified 02/22/20 14:30) shellfish derived Allergy (Verified 02/22/20 14:30) strawberry Allergy (Verified 02/22/20 14:30) tramadol [From Ultram] Allergy (Verified 02/22/20 14:30) Urinary retention vinyl Allergy (Severe, Uncoded 02/22/20 14:30) Blisters Past Medical History - Past Medical History Cardiac Medical History: Reports: Hx Hypertension Pulmonary Medical History: Reports: Hx Bronchitis Renal/ Medical History: Denies: Hx Peritoneal Dialysis GI Medical History: Reports: Hx Gastroesophageal Reflux Disease Musculoskeltal Medical History: Reports Hx Arthritis, Reports Hx Musculoskeletal Deformity Psychiatric Medical History: Reports: Hx Depression - anxiety Past Surgical History: Reports: Hx Appendectomy, Hx Cholecystectomy, Hx Gynecologic Surgery - D&C, Hx Hysterectomy, Hx Tubal Ligation - Immunizations Immunizations up to date: Yes Hx Diphtheria, Pertussis, Tetanus Vaccination: Yes Doctor's Discharge - Discharge Referrals: SHELLY CANALES DPM [Primary Care Provider] - Follow up as needed
[2020-02-25] MEDS ORDERED: ASPIRIN 81 MG TABLET, CHEWABLE PO ONE (15:24)
[2020-02-25 15:55] LABS: ABSOLUTE BASOPHILS # (AUTO) 0.1 10^3/uL (0.0-0.2); ABSOLUTE EOSINOPHILS # (AUTO) 0.2 10^3/uL (0.0-0.6); ABSOLUTE LYMPHOCYTES (AUTO) 1.9 10^3/uL (0.5-4.7); ABSOLUTE MONOCYTES (AUTO) 0.3 10^3/uL (0.1-1.4); ABSOLUTE NEUT (AUTO) 3.1 10^3/uL (1.7-8.2); BASOPHILS % (AUTO) 2.2 % (0-2); EOSINOPHILS % (AUTO) 3.8 % (0-6); HEMATOCRIT 39.6 % (36.0-47.0); HEMOGLOBIN 13.6 g/dL (12.0-15.5); MEAN CORPUSCULAR HEMOGLOBIN 30.8 pg (27.0-33.4); MEAN CORPUSCULAR HGB CONC 34.5 g/dL (32.0-36.0); MEAN CORPUSCULAR VOLUME 89 fl (80-97); MONOCYTES % (AUTO) 4.7 % (3-13); PLATELET COUNT 297 10^3/uL (150-450); RED BLOOD COUNT 4.43 10^6/uL (3.72-5.28); RED CELL DISTRIBUTION WIDTH 13.5 % (11.5-14.0); SEGMENTED NEUTROPHILS % (AUTO) 55.3 % (42-78); TOTAL CELLS COUNTED % (AUTO) 100 %; WHITE BLOOD COUNT 5.6 10^3/uL (4.0-10.5)
--- NOTE | 2020-02-25 15:59 | RADIOLOGY REPORT (SQ) ---
EXAM DESCRIPTION: CHEST 2 VIEWS IMAGES COMPLETED DATE/TIME: 02/25/2020 3:51 pm REASON FOR STUDY: Palpitation COMPARISON: 02/23/2020 TECHNIQUE: Frontal and lateral radiographic views of the chest acquired. NUMBER OF VIEWS: Two view. LIMITATIONS: None. FINDINGS: LUNGS AND PLEURA: No opacities, masses or pneumothorax. No pleural effusion. MEDIASTINUM AND HILAR STRUCTURES: No masses or contour abnormalities. HEART AND VASCULAR STRUCTURES: Heart normal size. No evidence for failure. BONES: No acute findings. HARDWARE: None in the chest. OTHER: No other significant finding. IMPRESSION: NO SIGNIFICANT RADIOGRAPHIC FINDING IN THE CHEST. TECHNICAL DOCUMENTATION: JOB ID: [id number] 2010 [employer]- All Rights Reserved Reading location - IP/workstation name: [email or web address]
[2020-02-25 16:14] LABS: ALBUMIN 4.2 g/dL (3.5-5.0); ALKALINE PHOSPHATASE 109 U/L (38-126); ANION GAP 8 (5-19); ASPARTATE AMINO TRANSFERASE 30 U/L (14-36); BILIRUBIN,TOTAL 0.3 mg/dL (0.2-1.3); BLOOD UREA NITROGEN 9 mg/dL (7-20); CALCIUM 9.5 mg/dL (8.4-10.2); CARBON DIOXIDE 22 mmol/L (22-30); CHLORIDE 108 mmol/L (98-107); CREATINE KINASE 262 U/L (30-135); GLUCOSE 106 mg/dL (75-110); POTASSIUM 4.3 mmol/L (3.6-5.0); TOTAL PROTEIN 7.2 g/dL (6.3-8.2)
[2020-02-25] MEDS ORDERED: NORMAL SALINE 1000 ML 1,000 ML IV ONE (17:45)
--- NOTE | 2020-02-25 19:51 | ER Document Report ---
ED General - General Chief Complaint: Palpitations Stated Complaint: RAPID HEART BEAT Time Seen by Provider: 02/25/20 15:19 Primary Care Provider: SHELLY CANALES DPM [Primary Care Provider] - Follow up as needed Mode of Arrival: Ambulatory Notes: 39-year-old woman presents to the emergency department with a complaint of rapid heartbeat and feeling poorly. She has been treated with Bactrim, Bactroban ointment and Levaquin for skin infections assumed to be MRSA. Patient states that she has been feeling poorly and thinks that she may be dehydrated. She denies of nausea vomiting or fever and chills. TRAVEL OUTSIDE OF THE [place] IN LAST 30 DAYS: No - Related Data Allergies/Adverse Reactions: meperidine [From Demerol] Allergy (Severe, Verified 02/22/20 14:30) Psychosis Latex, Natural Rubber Allergy (Intermediate, Verified 02/22/20 14:30) Hives melon Allergy (Verified 02/22/20 14:30) shellfish derived Allergy (Verified 02/22/20 14:30) strawberry Allergy (Verified 02/22/20 14:30) tramadol [From Ultram] Allergy (Verified 02/22/20 14:30) Urinary retention vancomycin Allergy (Verified 02/25/20 15:21) vinyl Allergy (Severe, Uncoded 02/22/20 14:30) Blisters Past Medical History - General Information source: Patient - Social History Smoking Status: Current Every Day Smoker Family History: Reviewed & Not Pertinent - Past Medical History Cardiac Medical History: Reports: Hx Hypertension Pulmonary Medical History: Reports: Hx Bronchitis Renal/ Medical History: Denies: Hx Peritoneal Dialysis GI Medical History: Reports: Hx Gastroesophageal Reflux Disease Musculoskeletal Medical History: Reports Hx Arthritis, Reports Hx Muscu loskeletal Deformity Psychiatric Medical History: Reports: Hx Depression - anxiety Past Surgical History: Reports: Hx Appendectomy, Hx Cholecystectomy, Hx Gynecologic Surgery - D&C, Hx Hysterectomy, Hx Tubal Ligation - Immunizations Immunizations up to date: Yes Hx Diphtheria, Pertussis, Tetanus Vaccination: Yes Review of Systems - Review of Systems Notes: Constitutional: Generalized weakness HENT: Negative for sore throat. Eyes: Negative for visual changes. Cardiovascular: Episodic tachycardia Respiratory: Negative for shortness of breath. Gastrointestinal: Negative for abdominal pain, vomiting or diarrhea. Genitourinary: Negative for dysuria. Musculoskeletal: Negative for back pain. Skin: Skin lesions Neurological: Negative for headaches, weakness or numbness. 10 point ROS negative except as marked above and in HPI. Physical Exam - Vital signs Vitals: Temp 98.7 F 02/25/20 15:22 - Notes Notes: PHYSICAL EXAMINATION: Physical Exam: General: Well-nourished well-developed man in no acute distress HEENT: NC/AT, pupils equal round and reactive to light, MM moist,nares clear, oropharynx clear, airway patent Neck: supple, no adenopathy, no masses. Good range of motion Lungs: clear, no wheezing, no rales no rhonchi CVS: Regular rate and rhythm no murmur gallop or rub Abdomen: Soft, active, nontender, no masses, no hepatosplenomegaly Ext: No edema, clubbing or cyanosis. Neuro: Alert and responsive, moving all 4 extremities on command, cranial nerves intact, no focal findings Skin: Multiple small skin lesions which are not tender to touch PSYCH: Normal mood, normal affect. Course - Re-evaluation Re-evalutation: 02/25/20 19:50 Patient's labs were reviewed they are in normal range, white count is normal and electrolytes/renal function is normal. She is given 1 L normal saline in the emergency department, I have explained to the patient her findings do not suggest blood borne infection and her vital signs have been stable throughout the ER stay. She is to continue to push fluids, continue to take the medications as previously prescribed. And follow-up with her primary care doctor as needed. - Vital Signs Vital signs: Temp Pulse Resp BP Pulse Ox 98.7 F 111 H 22 H 103/59 L 97 02/25/20 15:27 02/25/20 15:27 02/25/20 20:00 02/25/20 19:01 02/25/20 20:00 - Laboratory Result Diagrams: 02/25/20 15:40 02/25/20 15:40 Laboratory results interpreted by me: 02/25/20 02/25/20 15:40 15:40 Baso % (Auto) 2.2 H Chloride 108 H Est GFR (MDRD) Non-Af 51 L ALT 40 H Creatine Kinase 262 H 02/25/20 19:51 I have reviewed laboratory data and used this information for the treatment decisions regarding the patient. Discharge - Discharge Clinical Impression: Palpitations, Generalized weakness, Nausea Condition: Good Disposition: HOME, SELF-CARE Additional Instructions: You were seen in the emergency department today with concerns of being possibly dehydrated as well as possible adverse reaction to medications. Your labs are normal and your vital signs have been stable in the emergency department. Please continue your medications as previously prescribed, continue to hydrate well, and follow-up with your primary care doctor as needed. You have further difficulties or other concerns you may return to the emergency department for further evaluation and treatment. HOME CARE INSTRUCTIONS & INFORMATION: Thank you for choosing us for your medical needs. We hope you're satisfied with the care you received. After you leave, you must properly care for your problem and, at the same time, observe its progress. Any condition can change. Some illnesses can change rapidly over hours or days. If your condition worsens, return to the Emergency Department or see your physician promptly. ABOUT YOUR X-RAYS AND EKG'S: If you had an EKG or X-rays taken, they have been read by the Emergency Physician. The X-rays and EKG's will also be read by a Radiologist or Ap Processor within 24 hours. If discrepancies are noted, you will be notified by telephone. Please be certain the ED has a correct telephone number & address where you can be reached. Also, realize that some fractures or abnormalities do not show up on initial X-rays. If your symptoms continue, see your physician. ABOUT YOUR LABORATORY TEST: If you had laboratory tests, the results have been reviewed by the Emergency Physician. Some test results (for example cultures) may not be available for several days. You will be contacted if any test result shows you need additional treatment. Please be certain the ED has a correct telephone number and address where you can be reached. ABOUT YOUR MEDICATIONS: You will receive instructions on how to take your medicine on the prescription label you receive. Additional information may be provided by the Pharmacy. If you have questions afterwards, call the ED for clarification or further instructions. Some prescribed medications may cause drowsiness. Do not perform tasks such as driving a car or operating machinery without consulting your Pharmacist. If you feel you need a refill of pain medication, your condition will need re-evaluation. Please do not call for a refill of any medication. ABOUT YOUR SIGNATURE: Signature of this document acknowledges to followin. Understanding that you received emergency treatment and that you may be released before al medical problems are known or treated. Please be certain the ED has a correct phone number & address where you can be reached. 2. Acknowledgement that you will arrange for follow-up care as recommended. 3. Authorization for the Emergency Physician to provide information to your follow-up Physician in order to maximize your care. AT ANY TIME, IF YOUR SYMPTOMS CHANGE SIGNIFICANTLY OR WORSEN OR YOU DEVELOP NEW SYMPTOMS, RETURN TO THE EMERGENCY DEPARTMENT IMMEDIATELY FOR RE-EVALUATION. OUR GOAL IS TO PROVIDE EXCELLENT MEDICAL CARE! WE HOPE THAT WE HAVE MET YOUR EXPECTATIONS DURING YOUR EMERGENCY DEPARTMENT VISIT AND THAT YOU FEEL YOU HAVE RECEIVED EXCELLENT CARE! Prescriptions: Ondansetron [Zofran Odt 4 mg Tablet] 1 - 2 tab PO Q4H PRN #15 tab.rapdis PRN Reason: For Nausea/Vomiting Referrals: SHELLY CANALES DPM [Primary Care Provider] - Follow up as needed
[2020-02-25 20:16] VITALS: BP 103/59
--- NOTE | 2020-02-25 21:40 | EKG REPORT ---
SEVERITY:- ABNORMAL ECG - SINUS TACHYCARDIA PROLONGED QT INTERVAL : Confirmed by: Tosin Pittman 25-Feb-2020 21:39:48
== END 2020-02-25 19:40 | disposition home or self-care (01) ==
LOC: ER 14:50
DX: R00.2 Palpitations (principal); R00.0 Tachycardia, unspecified; R53.1 Weakness; R11.0 Nausea; F17.200 Nicotine dependence, unspecified, uncomplicated; I10 Essential (primary) hypertension; L08.9 Local infection of the skin and subcutaneous tissue, unspecified; Z88.6 Allergy status to analgesic agent; Z88.5 Allergy status to narcotic agent; Z91.040 Latex allergy status; Z91.018 Allergy to other foods; Z91.013 Allergy to seafood; Z88.1 Allergy status to other antibiotic agents; Z91.048 Other nonmedicinal substance allergy status
CPT/HCPCS: 93005; 99285; 96360; 96361; 36415; 82550; 83735; 84443; 85025; 80053; 84484; 71046; 93010; A9270; J7030

== ENCOUNTER 2020-07-06 22:53 | Emergency (ER) | payer MEDICARE, MEDICAID ==
[2020-07-06 23:10] VITALS: BP 129/75
--- NOTE | 2020-07-06 23:20 | ER Document Report ---
ED Medical Screen (RME) - General Chief Complaint: Fall Stated Complaint: FALL/RIGHT SIDED PAIN Time Seen by Provider: 07/06/20 23:08 Primary Care Provider: SHELLY CANALES DPM [Primary Care Provider] - Follow up as needed Mode of Arrival: Medic Information source: Patient Notes: 40-year-old female presented to ED for pain to her head neck right side to include wrist arm hip and ankle. She states she was carrying her grandchild when she fell hitting the right side of her body. She does have pain to the cervical spine the head and the extremities. She states she has been dazed and has had less memory of history and thinks that she should no since her fall. She denies any nausea vomiting. Patient does have a cervical collar on from EMS. She also has bandages and splints to her right forearm and wrist. I have greeted and performed a rapid initial assessment of this patient. A comprehensive ED assessment and evaluation of the patient, analysis of test results and completion of medical decision making process will be conducted by an additional ED providers. TRAVEL OUTSIDE OF THE [place] IN LAST 30 DAYS: No - Related Data Allergies/Adverse Reactions: meperidine [From Demerol] Allergy (Severe, Verified 02/22/20 14:30) Psychosis Latex, Natural Rubber Allergy (Intermediate, Verified 02/22/20 14:30) Hives melon Allergy (Verified 02/22/20 14:30) shellfish derived Allergy (Verified 02/22/20 14:30) strawberry Allergy (Verified 02/22/20 14:30) tramadol [From Ultram] Allergy (Verified 02/22/20 14:30) Urinary retention vancomycin Allergy (Verified 02/25/20 15:21) vinyl Allergy (Severe, Uncoded 02/22/20 14:30) Blisters Past Medical History - Past Medical History Cardiac Medical History: Reports: Hx Hypertension Pulmonary Medical History: Reports: Hx Bronchitis Renal/ Medical History: Denies: Hx Peritoneal Dialysis GI Medical History: Reports: Hx Gastroesophageal Reflux Disease Musculoskeltal Medical History: Reports Hx Arthritis, Reports Hx Musculoskeletal Deformity Psychiatric Medical History: Reports: Hx Depression - anxiety Past Surgical History: Reports: Hx Appendectomy, Hx Cholecystectomy, Hx Gynecologic Surgery - D&C, Hx Hysterectomy, Hx Tubal Ligation - Immunizations Immunizations up to date: Yes Hx Diphtheria, Pertussis, Tetanus Vaccination: Yes Physical Exam - Vital signs Vitals: Temp Pulse Resp BP Pulse Ox 97.5 F 66 20 129/75 H 98 07/06/20 23:07 07/06/20 23:07 07/06/20 23:07 07/06/20 23:07 07/06/20 23:07 Course - Vital Signs Vital signs: Temp Pulse Resp BP Pulse Ox 97.5 F 66 20 129/75 H 98 07/06/20 23:07 07/06/20 23:07 07/06/20 23:07 07/06/20 23:07 07/06/20 23:07 Doctor's Discharge - Discharge Referrals: SHELLY CANALES DPM [Primary Care Provider] - Follow up as needed
--- NOTE | 2020-07-07 00:14 | RADIOLOGY REPORT (SQ) ---
2 VIEWS OF RIGHT FOREARM 3 VIEWS RIGHT WRIST HISTORY: Wrist pain. COMPARISON: None. FINDINGS: No acute fracture or dislocation is seen. The joint spaces are preserved. The soft tissues are mildly swollen. No foreign body is seen. IMPRESSION: No acute bony findings.
--- NOTE | 2020-07-07 00:17 | RADIOLOGY REPORT (SQ) ---
CT BRAIN AND CERVICAL SPINE HISTORY: Trauma. COMPARISON: None. TECHNIQUE: CT scan of the brain and cervical spine was performed without IV contrast. This exam was performed according to our departmental dose-optimization program, which includes automated exposure control, adjustment of the mA and/or kV according to patient size and/or use of iterative reconstruction technique. FINDINGS: BRAIN: The ventricles, cisterns, and sulci are age-appropriate. No evidence of acute infarction, intracranial hemorrhage, extra-axial fluid collection, or midline shift. No air-fluid levels are seen in the paranasal sinuses to suggest acute sinusitis. No depressed skull fracture. CERVICAL SPINE: No acute cervical fracture or prevertebral soft tissue swelling. There is straightening of the normal cervical lordosis, which may be due to cervical collar, muscle spasm, or patient positioning. The facet joints and disc spaces are preserved. No advanced canal stenosis is identified. IMPRESSION: 1. No acute intracranial hemorrhage. 2. No acute fracture or subluxation of the cervical spine.
--- NOTE | 2020-07-07 00:18 | RADIOLOGY REPORT (SQ) ---
3 VIEWS OF RIGHT ANKLE HISTORY: Ankle pain post trauma. COMPARISON: None. FINDINGS: The ankle mortise is preserved on these nonstress views. No acute fracture is identified. The surrounding soft tissues are swollen. No foreign bodies. IMPRESSION: Ankle soft tissue swelling, without acute fracture seen.
--- NOTE | 2020-07-07 00:19 | RADIOLOGY REPORT (SQ) ---
2 VIEWS RIGHT HIP HISTORY: Fell while holding child pain right hip . COMPARISON: 02/13/2018 FINDINGS: Prior total hip arthroplasty with acetabular and femoral components intact. No evidence of hardware loosening or periprosthetic fracture. IMPRESSION: No acute findings in the right hip arthroplasty hardware.
== END 2020-07-06 23:58 | disposition left against medical advice (07) ==
LOC: ER 22:53
DX: R51.9 Headache, unspecified (principal); M54.2 Cervicalgia; M25.531 Pain in right wrist; M25.551 Pain in right hip; M25.571 Pain in right ankle and joints of right foot; W01.0XXA Fall on same level from slipping, tripping and stumbling without subsequent striking against object, initial encounter; I10 Essential (primary) hypertension; Z88.6 Allergy status to analgesic agent; Z88.5 Allergy status to narcotic agent; Z91.018 Allergy to other foods; Z91.013 Allergy to seafood; Z88.1 Allergy status to other antibiotic agents; Z91.048 Other nonmedicinal substance allergy status; Z53.29 Procedure and treatment not carried out because of patient's decision for other reasons
CPT/HCPCS: 70450; 72125; 99281

== ENCOUNTER 2020-07-18 17:13 | Emergency (ER) | payer MEDICAID, MEDICARE ==
[2020-07-18 17:29] VITALS: BP 129/82
--- NOTE | 2020-07-18 17:31 | ER Document Report ---
ED Medical Screen (RME) - General Chief Complaint: Fall Injury Stated Complaint: FALL/RIGHT SIDE BODY PAIN Time Seen by Provider: 07/18/20 17:27 Primary Care Provider: TAVO PANTOJA DO [Primary Care Provider] - Follow up as needed Notes: HPI: 40-year-old female presenting for evaluation of continuing pain from a mechanical fall 12 days ago. Patient complaining of pain to the right neck right shoulder right wrist right pelvis and hip region, right ankle. Patient states she had imaging done here but was not able to stay that she had to go take care of her grandson. She has a pain management doctor. The pain management doctor apparently told her she needed to have some of her images redone. PHYSICAL EXAMINATION: I did review the patient's records. All imaging studies including the neck, wrist, forearm, pelvis and right ankle were all negative for acute findings. Patient is insistent that she needs further imaging of the right wrist and the right shoulder. Will order these x-rays. There is no visi ble swelling or bruising noted to the wrist or shoulder region I have greeted and performed a rapid initial assessment of this patient. A comprehensive ED assessment and evaluation of the patient, analysis of test results and completion of medical decision making process will be conducted by an additional ED providers. Please note that clinical decision making for this patient was made during the 2019 pandemic of novel coronavirus which caused a significant strain on the healthcare system including at this particular facility. Criteria for admission discharge and level of care decisions as well as treatment decisions have necessarily changed TRAVEL OUTSIDE OF THE [place] IN LAST 30 DAYS: No - Related Data Allergies/Adverse Reactions: meperidine [From Demerol] Allergy (Severe, Verified 02/22/20 14:30) Psychosis Latex, Natural Rubber Allergy (Intermediate, Verified 02/22/20 14:30) Hives melon Allergy (Verified 02/22/20 14:30) shellfish derived Allergy (Verified 02/22/20 14:30) strawberry Allergy (Verified 02/22/20 14:30) tramadol [From Ultram] Allergy (Verified 02/22/20 14:30) Urinary retention vancomycin Allergy (Verified 02/25/20 15:21) vinyl Allergy (Severe, Uncoded 02/22/20 14:30) Blisters Past Medical History - Past Medical History Cardiac Medical History: Reports: Hx Hypertension Pulmonary Medical History: Reports: Hx Bronchitis Renal/ Medical History: Denies: Hx Peritoneal Dialysis GI Medical History: Reports: Hx Gastroesophageal Reflux Disease Musculoskeltal Medical History: Reports Hx Arthritis, Reports Hx Musculoskeletal Deformity Psychiatric Medical History: Reports: Hx Depression - anxiety Past Surgical History: Reports: Hx Appendectomy, Hx Cholecystectomy, Hx Gynecologic Surgery - D&C, Hx Hysterectomy, Hx Tubal Ligation - Immunizations Immunizations up to date: Yes Hx Diphtheria, Pertussis, Tetanus Vaccination: Yes Physical Exam - Vital signs Vitals: Temp Pulse Resp BP Pulse Ox 98.2 F 78 20 129/82 H 96 07/18/20 17:29 07/18/20 17:29 07/18/20 17:29 07/18/20 17:29 07/18/20 17:29 Course - Vital Signs Vital signs: Temp Pulse Resp BP Pulse Ox 98.2 F 78 20 129/82 H 96 07/18/20 17:29 07/18/20 17:29 07/18/20 17:29 07/18/20 17:29 07/18/20 17:29 Doctor's Discharge - Discharge Referrals: TAVO PANTOJA DO [Primary Care Provider] - Follow up as needed
--- NOTE | 2020-07-18 18:01 | RADIOLOGY REPORT (SQ) ---
EXAM DESCRIPTION: WRIST RIGHT 3 VIEWS IMAGES COMPLETED DATE/TIME: 07/18/2020 5:46 pm REASON FOR STUDY: fall COMPARISON: None. NUMBER OF VIEWS: Three views. TECHNIQUE: AP, lateral, and oblique radiographic images acquired of the right wrist. LIMITATIONS: None. FINDINGS: MINERALIZATION: Normal. BONES: No acute fracture or dislocation. No worrisome bone lesions. Normal alignment. SOFT TISSUES: No soft tissue swelling. No foreign body. OTHER: No other significant finding. IMPRESSION: NEGATIVE STUDY OF THE RIGHT WRIST. NO RADIOGRAPHIC EVIDENCE OF ACUTE INJURY. TECHNICAL DOCUMENTATION: JOB ID: [id number] [employer]- All Rights Reserved Reading location - IP/workstation name: [email or web address]
--- NOTE | 2020-07-18 18:03 | RADIOLOGY REPORT (SQ) ---
EXAM DESCRIPTION: SHOULDER RIGHT 2 OR MORE VIEWS IMAGES COMPLETED DATE/TIME: 07/18/2020 5:46 pm REASON FOR STUDY: fall COMPARISON: None. NUMBER OF VIEWS: Three views. TECHNIQUE: Internal rotation, external rotation, and Y view images acquired of the right shoulder. LIMITATIONS: None. FINDINGS: MINERALIZATION: Normal. BONES: No acute fracture. No worrisome bone lesions. JOINTS: No dislocation. VISUALIZED LUNGS AND RIBS: No pneumothorax. No rib fracture. SOFT TISSUES: No radiopaque foreign body. OTHER: No other significant finding. IMPRESSION: NEGATIVE STUDY OF THE RIGHT SHOULDER. NO RADIOGRAPHIC EVIDENCE OF ACUTE INJURY. TECHNICAL DOCUMENTATION: JOB ID: [id number] 2010 [employer]- All Rights Reserved Reading location - IP/workstation name: [email or web address]
== END 2020-07-18 20:40 | disposition left against medical advice (07) ==
LOC: ER 17:13
DX: M54.2 Cervicalgia (principal); M25.511 Pain in right shoulder; M25.531 Pain in right wrist; R10.9 Unspecified abdominal pain; M25.571 Pain in right ankle and joints of right foot; M25.551 Pain in right hip; W19.XXXA Unspecified fall, initial encounter; I10 Essential (primary) hypertension; Z88.6 Allergy status to analgesic agent; Z88.5 Allergy status to narcotic agent; Z91.040 Latex allergy status; Z91.018 Allergy to other foods; Z91.013 Allergy to seafood; Z88.1 Allergy status to other antibiotic agents; Z91.048 Other nonmedicinal substance allergy status; Z53.29 Procedure and treatment not carried out because of patient's decision for other reasons
CPT/HCPCS: 99281

== ENCOUNTER → 2020-08-01 | Outpatient (CLI) | payer MEDICAID, MEDICARE ==
--- NOTE | 2020-08-01 16:25 | RADIOLOGY REPORT (SQ) ---
EXAM DESCRIPTION: MRI LUMBAR SPINE WITHOUT IMAGES COMPLETED DATE/TIME: 08/01/2020 4:07 pm REASON FOR STUDY: (M54.16)RADICULOPATHY, LUMBAR REGION Q72.819 CONGENITAL SHORTENING OF UNSPECIFIED LOWER LIMB M54.5 LOW BACK PAIN M54.16 RADICULOPATHY, LUMBAR REGION COMPARISON: 07/16/2019 TECHNIQUE: Sagittal and Axial imaging includes T1, T2, STIR and gradient echo sequences. Coronal T2/ HASTE imaging. LIMITATIONS: None. FINDINGS: VISUALIZED UPPER ABDOMEN: Limited evaluation. No acute or suspicious findings suggested. SEGMENTATION: No transitional anatomy. The lowest well-developed disc space is labeled L5-S1. ALIGNMENT: Grade 1 anterolisthesis of L5 on S1. Very mild scoliosis with concavity toward the right. VERTEBRAE: Intact. BONE MARROW: Normal. No marrow replacement or reactive changes. DISC SIGNAL: Loss of normal water signal from L2-L3 through L5-S1 consistent with desiccation. Schmo rl's node along the superior endplate of L4. POSTERIOR ELEMENTS: Bilateral pars defects at L5 are again noted. HARDWARE: None in the spine. CORD AND CONUS: Normal in size and signal intensity. Conus at the appropriate level. SOFT TISSUES: No aortic aneurysm seen. No bulky retroperitoneal adenopathy or mass. No paraspinal mas s or fluid. L1-L2: No significant spinal stenosis or exit foraminal stenosis. L2-L3: No significant spinal stenosis or exit foraminal stenosis. L3-L4: No significant spinal stenosis or exit foraminal stenosis. L4-L5: Stable facet arthropathy. No foraminal stenosis. L5-S1: Grade 1 anterolisthesis of L5 on S1. Bilateral facet arthropathy. Stable foraminal narrowing right greater than left. LOWER THORACIC: Incompletely imaged. No stenosis seen. SACRUM: Visualized upper sacrum intact. OTHER: No other significant findings. IMPRESSION: Stable MRI of the lumbar spine with bilateral pars defects at L5. Grade 1 anterolisthes is of L5 on S1. No high-grade central stenosis or definite nerve root impingement. TECHNICAL DOCUMENTATION: JOB ID: [id number] [employer]- All Rights Reserved Reading location - IP/workstation name: [email or web address]
--- NOTE | 2020-08-01 16:34 | RADIOLOGY REPORT (SQ) ---
EXAM DESCRIPTION: CT BONE LENGTH IMAGES COMPLETED DATE/TIME: 08/01/2020 4:13 pm REASON FOR STUDY: (Q72.819)CONGENITAL SHORTENING OF UNSPECIFIED LOWER LIMB Q72.819 CONGENITAL SHORT ENING OF UNSPECIFIED LOWER LIMB M54.5 LOW BACK PAIN M54.16 RADICULOPATHY, LUMBAR REGION COMPARISON: None. TECHNIQUE: CT scanogram of the bilateral lower extremities is performed including pelvis to ankles. Measurements of femur, tibia, and entire lower extremities performed by the radiologist and saved to PACS. All CT scanners at this facility use dose modulation, iterative reconstruction, and/or weight based d osing when appropriate to reduce radiation dose to as low as reasonably achievable (ALARA). [facility]: Dose Right [facility]: CareDose [facility]: Dose Right [facility]: Teradose 4D [facility]: [employer] RADIATION DOSE: mGy. LIMITATIONS: None. FINDINGS: RIGHT: FEMUR: 45.0 cm. TIBIA: 37.0 cm. TOTAL RIGHT LOWER EXTREMITY LENGTH (INCLUDES THE KNEE JOINT SPACE): 82.6 cm. LEFT: FEMUR: 45.7 cm. TIBIA: 37.4 cm. TOTAL LEFT LOWER EXTREMITY LENGTH (INCLUDES THE KNEE JOINT SPACE): 82.1 cm. IMPRESSION: LEG LENGTH MEASUREMENTS DETAILED ABOVE. TECHNICAL DOCUMENTATION: JOB ID: [id number] Quality ID # [id number]: Final reports with documentation of one or more dose reduction techniques (e.g., Au tomated exposure control, adjustment of the mA and/or kV according to patient size, use of iterative reconstruction technique) 2010 [employer]- All Rights Reserved Reading location - IP/workstation name: [email or web address]
--- NOTE | 2020-08-01 16:45 | RADIOLOGY REPORT (SQ) ---
EXAM DESCRIPTION: L SPINE W/FLEX/EXT IMAGES COMPLETED DATE/TIME: 08/01/2020 4:31 pm REASON FOR STUDY: (M54.16)RADICULOPATHY, LUMBAR REGION Q72.819 CONGENITAL SHORTENING OF UNSPECIFIED LOWER LIMB M54.5 LOW BACK PAIN M54.16 RADICULOPATHY, LUMBAR REGION COMPARISON: None. NUMBER OF VIEWS: Seven views. TECHNIQUE: AP, lateral, obliques, flexion, extension, and sacral radiographic images acquired. LIMITATIONS: None. FINDINGS: Incidental spina bifida occulta L5-S1. Grade 1 anterolisthesis of L5 relative to S1. Dis c space narrowing L5-S1. Mild osteophyte formation. No abnormal motion with flexion and extension. There is a lower thoracic spondylosis. IMPRESSION: Spondylosis and mild malalignment. No instability. TECHNICAL DOCUMENTATION: JOB ID: [id number] 2010 [employer]- All Rights Reserved Reading location - IP/workstation name: [email or web address]
--- NOTE | 2020-08-01 16:47 | RADIOLOGY REPORT (SQ) ---
EXAM DESCRIPTION: SACROILIAC JOINTS IMAGES COMPLETED DATE/TIME: 08/01/2020 4:31 pm REASON FOR STUDY: (M54.5)LOW BACK PAIN Q72.819 CONGENITAL SHORTENING OF UNSPECIFIED LOWER LIMB M54. 5 LOW BACK PAIN M54.16 RADICULOPATHY, LUMBAR REGION COMPARISON: None. NUMBER OF VIEWS: Three views. TECHNIQUE: AP and oblique views of the sacroiliac joints. LIMITATIONS: None. FINDINGS: MINERALIZATION: Normal. BONES: No acute fracture or dislocation. No worrisome bone lesions. No significant osteophytes. JOINTS: The sacroiliac joints are patent. No unusual widening, sclerosis, or fusion. SOFT TISSUES: No soft tissue swelling. No radio-opaque foreign body. OTHER: Right hip arthroplasty. IMPRESSION: NORMAL STUDY OF THE SACROILIAC JOINTS. TECHNICAL DOCUMENTATION: JOB ID: [id number] 2010 [employer]- All Rights Reserved Reading location - IP/workstation name: [email or web address]
== END ==
LOC: RAD 15:15
PROVIDERS: ATTEND Podiatrist Foot & Ankle Surgery
DX: M47.26 Other spondylosis with radiculopathy, lumbar region (principal); M54.5 Low back pain; Q72.819 Congenital shortening of unspecified lower limb
CPT/HCPCS: 72114; 72148; 72200; 77073